=== PATIENT | male | born 1975 | race Caucasian/White ===

== ENCOUNTER 2016-10-15 08:38 | Emergency (ER) | payer OTHER ==
[2016-10-15] MEDS ORDERED: ONDANSETRON 4MG/2ML VIAL (J2405) As Ordered ONE (09:46)
[2016-10-15] MEDS ORDERED: MORPHINE 4 MG/ML 1ML SYRINGE As Ordered ONE (09:46)
--- NOTE | 2016-10-15 12:19 | REP ---
MR LUMBAR SPINE WITHOUT CONTRAST: HISTORY: Back pain. COMPARISON: 03/27/2016. Decreased signal intensity on T2-weighted images is present in the L1-2 and L3-4 through L5-S1 intervertebral discs. The discs are decreased in height. These findings are consistent with disc degeneration. There is no disc bulge or herniation at the L1-2 level. The L1 nerves exit the neural foramina without compression. A diffuse disc bulge is present at the L2-3 level. There is minimal compression of the thecal sac. The L2 nerves exit the neural foramina without compression. A diffuse disc bulge is present at the L3-4 level. There is minimal compression of the thecal sac. A small left intraforaminal disc protrusion is present. This abuts the left L3 nerve in the neural foramen. The right L3 nerve exits the neural foramen without compression. A diffuse disc bulge and small central disc protrusion are present at the L4-5 level. There is minimal compression of the thecal sac. There is hypertrophy of the posterior articulating facets. The L4 nerves exit the neural foramina without compression. A diffuse disc bulge and small disc extrusion central and eccentric to the left are present at the L5-S1 level. There is minimal compression of the thecal sac and left S1 nerve as it exits the thecal sac. There is hypertrophy of the posterior articulating facets. The L5 nerves exit the neural foramina without compression. The conus medullaris is normal in appearance terminating at the level of the L1-2 intervertebral disc. A hemangioma is present in the L3 vertebral body. Normal signal intensity is present in the remaining lumbar vertebral bodies. IMPRESSION: 1. Diffuse disc bulges at the L2-3 and L3-4 levels with minimal thecal sac compression. 2. Diffuse disc bulge and small central disc protrusion at the L4-5 level with minimal thecal sac compression. 3. Diffuse disc bulge and small disc extrusion at the L5-S1 level with minimal compression of the thecal sac and left S1 nerve as it exits the thecal sac. There is no significant change compared to the previous study. Signed by Seferino Jorge MD 10/15/2016 12:24 P
--- NOTE | 2016-10-15 12:21 | EDDOCDS ---
Physician Documentation [facility] Name: Ángel Bass Age: 41 yrs Sex: Male : 1975 Arrival Date: 10/15/2016 Time: 08:38 Bed I6 / 28 Private MD: Magno Arreaga W. Disposition: 10/15/16 12:11 Discharged to Home/Self Care. Impression: Low back pain - Chronic, Other intervertebral disc disorders, lumbosacral region - Minimal bulge L2-3, L3-4; Small HNP L4-5, L5-S1; no change from previous MRI. - Condition is Stable. - Discharge Instructions: Back Pain, Adult, [id number], Herniated Disk, Kjqf-bs-[id number]. - Prescriptions for Prednisone 20 mg Oral Tablet - take 3 tablet by ORAL route once daily for 5 days; 15 tablet. [place] 5- 325 mg Oral Tablet - take 1 tablet by ORAL route every 6 hours As needed MDD: 4 tabs; 10 tablet. Zanaflex 4 mg Oral Tablet - take 1 tablet by ORAL route every 8 hours As needed Will cause drowsiness, do not take while driving/operating heavy machinery.; 20 tablet. - Medication Reconciliation, Local Pharmacy Hours, Work Release Form - 5 day form. - Follow up: Magno Arreaga; When: 1 - 2 days; Reason: Recheck today's complaints, Continuance of care. Follow up: [facility]; When: 1 - 2 days; Reason: Further diagnostic work-up, Recheck today's complaints, Continuance of care. Follow up: Emergency Department; Reason: Worsening of conditions. - Problem is new. - Symptoms have improved. Historical: - Allergies: No known drug Allergies; - Home Meds: 1. Celebrex 200 mg Oral cap 1 cap once daily (Last dose: 10/15/2016 06:30) 2. Tylenol 500mg Oral 2 tabs every 6 hours PRN (Last dose: 10/15/2016 06:30) - PMHx: chronic back pain; - PSHx: bone graft; - Social history: Smoking status: Patient states was never smoker of tobacco. No barriers to communication noted, The patient speaks fluent Lithuanian, Speaks appropriately for age. - Family history: Not pertinent. - : The pt / caregiver states he / she is not on anticoagulants. Home medication list is obtained from the patient. - Exposure Risk Screening:: None identified. Vital Signs: 10/15 09:09 BP 134 / 90; Pulse 84; Resp 18; Temp 97.7(O); Pulse Ox 98% ; Weight 108.86 kg / 240 lbs jb5 (R); Height 5 ft. 8 in. (172.72 cm); Pain 6/10; 12:19 BP 128 / 91; Pulse 76; Resp 16; Temp 96.9(O); Pulse Ox 98% ; Pain 4/10; kr3 09:09 Body Mass Index 36.49 (108.86 kg, 172.72 cm) jb5 MDM: 09:33 IV Saline Lock ordered. ef1 09:33 morphine 4 mg IVP once ordered. ef1 09:33 Ondansetron 4 mg IVP once ordered. ef1 09:35 MRI Screening Tool - Place on chart, inform RN ordered. ef1 09:36 -MRI-Spine, Lumbar without contrast Ordered. EDMS 09:51 MRI Screening Tool - Place on chart, inform RN complete. [facility] 11:34 [facility] Payment Agreement was scanned into [employer] and attached to record. 5 11:34 Financial registration complete. jp5 Administered Medications: 09:54 Drug: Ondansetron 4 mg [ondansetron HCl 2 mg/mL intravenous solution (2 mL)] Route: kr3 IVP; Site: right hand; 09:57 Drug: morphine 4 mg [morphine 4 mg/mL intravenous cartridge (1 mL)] Route: IVP; Site: kr3 right hand; 10:51 Follow up: Response: Pain is decreased 4 Signatures: Dispatcher [employer] EDMS Sheela DesouzaRN RN kr3 Wendi SosaRN RN Nazanin Salazar, PA-C PA-C ef1 Dashawn Chawla jml1 Elle Downs RN RN claudette4 Brenda Mathew jp5 The chart was reviewed and I authenticate all verbal orders and agree with the evaluation and treatment provided.Attachments: 11:34 [facility] Payment Agreement jp5 MTDD
--- NOTE | 2016-10-15 12:21 | EDDOCDS ---
Nurse's Notes [facility] Name: Ángel Bass Age: 41 yrs Sex: Male : 1975 Arrival Date: 10/15/2016 Time: 08:38 Bed I6 Private MD: Magno Arreaga W. Diagnosis: Low back pain-Chronic;Other intervertebral disc disorders, lumbosacral region-Minimal bulge L2-3, L3-4; Small HNP L4-5, L5-S1; no change from previous MRI Presentation: 10/15 09:03 Presenting complaint: Patient states: Hx of 4 herniated discs. Had injections 2 weeks jo3 ago. Pain is not getting any better. Pt of orthopedic group. Acute neurological deficits are not present. Mechanism of Injury: No Mechanism of Injury. Adult Sepsis Screening: The patient does not have new or worsening altered mentation. Patient's respiratory rate is less than 22. Systolic blood pressure is greater than 100. Patient has a qSOFA score of 0- Negative Sepsis Screen. Suicide/Homicide risk assessment- the patient denies having any suicidal and/or homicidal ideations and does not present with any other emotional, behavioral or mental health complaints. Status: Patient is not a medical staff services manager or dependent. Transition of care: patient was not received from another setting of care. 09:03 Acuity: FRANCISCA Level 3 jo3 09:03 Method Of Arrival: Walkin/Carried/Asstd jo3 Triage Assessment: 09:06 General: Appears uncomfortable. Pain: Pain currently is 6 out of 10 on a pain scale. At jo3 worst was 10 out of 10 on a pain scale. Pt Declines HIV testing. Neurological: Level of Consciousness is awake, alert, Oriented to person, place, time. Respiratory: Airway is patent Respiratory effort is even, unlabored. Derm: Skin is pink, warm & dry. Historical: - Allergies: No known drug Allergies; - Home Meds: 1. Celebrex 200 mg Oral cap 1 cap once daily (Last dose: 10/15/2016 06:30) 2. Tylenol 500mg Oral 2 tabs every 6 hours PRN (Last dose: 10/15/2016 06:30) - PMHx: chronic back pain; - PSHx: bone graft; - Social history: Smoking status: Patient states was never smoker of tobacco. No barriers to communication noted, The patient speaks fluent Sri Lankan, Speaks appropriately for age. - Family history: Not pertinent. - : The pt / caregiver states he / she is not on anticoagulants. Home medication list is obtained from the patient. - Exposure Risk Screening:: None identified. Screenin:51 Screening information is obtained from the patient. Fall risk: No risks identified. mk4 Assistance ADL's: requires no assistance with activities of daily living. Abuse/DV Screen: The patient / caregiver reports he/she is: not in a situation that causes fear, pain or injury. Nutritional screening: No deficits noted. Advance Directives: Currently, there is no health care proxy. There is no active DNR order. There is no living will. There is no Power of Terminal Makeup Operator. Advance directive information has not previously been placed in an [facility] medical record. home support is adequate. Assessment: 09:50 General: Appears uncomfortable, Behavior is cooperative. Pain: Location: back pain from mk4 4 herniated discs Quality of pain is described as sharp, Is continuous. Neurological: Level of Consciousness is awake, alert. Respiratory: Airway is patent Respiratory effort is even, unlabored, Respiratory pattern is regular. Musculoskeletal: No deficits noted. 10:49 General: Appears in no apparent distress, returned from MRI , states pain manageable. mk4 Neurological: Level of Consciousness is awake, alert. Respiratory: Airway is patent Respiratory effort is even, unlabored, Respiratory pattern is regular. 12:20 Reassessment: Patient appears in no apparent distress at this time. Pain: Location: kr3 back Pain currently is 4 out of 10 on a pain scale. Neurological: No deficits noted. Respiratory: Respiratory effort is even, unlabored. Vital Signs: 09:09 BP 134 / 90; Pulse 84; Resp 18; Temp 97.7(O); Pulse Ox 98% ; Weight 108.86 kg (R); jb5 Height 5 ft. 8 in. (172.72 cm); Pain 6/10; 12:19 BP 128 / 91; Pulse 76; Resp 16; Temp 96.9(O); Pulse Ox 98% ; Pain 4/10; kr3 09:09 Body Mass Index 36.49 (108.86 kg, 172.72 cm) jb5 Vitals: 09:06 Log In Time: October 15, 2016 at 08:35. jo3 ED Course: 08:40 Patient visited by Ángel Bond. mm15 08:40 Magno Arreaga is Private Physician. mm15 08:40 Patient moved to Waiting mm15 09:05 Triage Initiated jo3 09:08 Patient visited by Wendi Sosa,VINCENT. jo3 09:08 Patient moved to Triage 2 jo3 09:10 Patient visited by Nina Vallecillo PCA. jb5 09:20 Naz[facility]in Sinclair [facility]. ef1 09:20 Gio Lim MD is Attending Physician. ef1 09:20 Patient visited by Nazanin Sinclair PA-C. ef1 09:34 Patient moved to I6 / 28 jb5 09:51 The patient / caregiver is instructed regarding the plan of care and ED course. mk4 09:51 No procedures done that require assistance. mk4 09:51 Missed attempts: 20 gauge X 2 in right hand, in right forearm. mk4 09:52 Patient visited by Elle Downs RN. mk4 09:57 Inserted saline lock: 22 gauge in right hand The patient tolerated the procedure well. kr3 10:04 Patient moved to MRI mk4 10:34 Patient visited by Nazanin Sinclair PA-C. ef1 10:49 Patient moved to I6 / 28 mk4 10:56 Patient visited by Nazanin Sinclair PA-C. ef1 10:56 Assisted to bathroom. kr3 11:28 Patient visited by Elle Downs RN. mk4 11:34 [facility] Payment Agreement was scanned into [employer] and attached to record. jp5 12:00 Patient visited by Nazanin Sinclair PA-C. ef1 12:11 Magno Arreaga is Referral Physician. ef1 12:11 [facility] ef1 12:19 Discontinued lock intact, bleeding controlled, pressure dressing applied, No kr3 redness/swelling at site. Administered Medications: 09:54 Drug: Ondansetron 4 mg [ondansetron HCl 2 mg/mL intravenous solution (2 mL)] Route: kr3 IVP; Site: right hand; 09:57 Drug: morphine 4 mg [morphine 4 mg/mL intravenous cartridge (1 mL)] Route: IVP; Site: kr3 right hand; 10:51 Follow up: Response: Pain is decreased mk4 Order Results: There are currently no results for this order. Outcome: 10:56 MRI Study completed. kr3 12:11 Discharge ordered by Provider. ef1 12:19 Discharge Assessment: patient administered narcotics - yes. Pt provided with safe kr3 discharge. The following High Risk Discharge criteria are identified: None. Discharged to home ambulatory, with family. Condition: stable. Discharge instructions given to patient, Instructed on discharge instructions, follow up and referral plans. medication usage, no driving heavy equipment, no drinking with medication, Demonstrated understanding of instructions, medications, Pt was receptive of discharge instructions/ teaching. Prescriptions given X 3. Property sent home with patient. 12:20 Patient left the ED. kr3 Signatures: Sheela Desouza,RN RN kr3 Nina Vallecillo, FINANCIAL AID FINANCIAL AID jb5 Wendi Sosa,RN RN jo3 Nazanin Sinclair, PA-C PA-C ef1 Ángel Bond mm15 Elle Downs RN RN claudette4 Brenda Mathew jp5 Corrections: (The following items were deleted from the chart) 09:52 09:51 No IV's were initiated during this patient's visit mk4 mk4 MTDD
--- NOTE | 2016-10-17 13:22 | EDDOCDS ---
Physician Documentation [facility] Name: Ángel Bass Age: 41 yrs Sex: Male : 1975 Arrival Date: 10/15/2016 Time: 08:38 Bed I6 / 28 Private MD: Magno Arreaga W. Disposition: 10/15/16 12:11 Discharged to Home/Self Care. Impression: Low back pain - Chronic, Other intervertebral disc disorders, lumbosacral region - Minimal bulge L2-3, L3-4; Small HNP L4-5, L5-S1; no change from previous MRI. - Condition is Stable. - Discharge Instructions: Back Pain, Adult, Ydov-[id number], Herniated Disk, Mics-uo-Ayvg. - Prescriptions for Prednisone 20 mg Oral Tablet - take 3 tablet by ORAL route once daily for 5 days; 15 tablet. [place] 5- 325 mg Oral Tablet - take 1 tablet by ORAL route every 6 hours As needed MDD: 4 tabs; 10 tablet. Zanaflex 4 mg Oral Tablet - take 1 tablet by ORAL route every 8 hours As needed Will cause drowsiness, do not take while driving/operating heavy machinery.; 20 tablet. - Medication Reconciliation, Local Pharmacy Hours, Work Release Form - 5 day form. - Follow up: Magno Arreaga; When: 1 - 2 days; Reason: Recheck today's complaints, Continuance of care. Follow up: [facility]; When: 1 - 2 days; Reason: Further diagnostic work-up, Recheck today's complaints, Continuance of care. Follow up: Emergency Department; Reason: Worsening of conditions. - Problem is new. - Symptoms have improved. Historical: - Allergies: No known drug Allergies; - Home Meds: 1. Celebrex 200 mg Oral cap 1 cap once daily (Last dose: 10/15/2016 06:30) 2. Tylenol 500mg Oral 2 tabs every 6 hours PRN (Last dose: 10/15/2016 06:30) - PMHx: chronic back pain; - PSHx: bone graft; - Social history: Smoking status: Patient states was never smoker of tobacco. No barriers to communication noted, The patient speaks fluent Tajik, Speaks appropriately for age. - Family history: Not pertinent. - : The pt / caregiver states he / she is not on anticoagulants. Home medication list is obtained from the patient. - Exposure Risk Screening:: None identified. Vital Signs: 10/15 09:09 BP 134 / 90; Pulse 84; Resp 18; Temp 97.7(O); Pulse Ox 98% ; Weight 108.86 kg / 240 lbs jb5 (R); Height 5 ft. 8 in. (172.72 cm); Pain 6/10; 12:19 BP 128 / 91; Pulse 76; Resp 16; Temp 96.9(O); Pulse Ox 98% ; Pain 4/10; kr3 09:09 Body Mass Index 36.49 (108.86 kg, 172.72 cm) jb5 MDM: 09:33 IV Saline Lock ordered. ef1 09:33 morphine 4 mg IVP once ordered. ef1 09:33 Ondansetron 4 mg IVP once ordered. ef1 09:35 MRI Screening Tool - Place on chart, inform RN ordered. ef1 09:36 -MRI-Spine, Lumbar without contrast Ordered. EDMS 09:51 MRI Screening Tool - Place on chart, inform RN complete. jml1 11:34 [facility] Payment Agreement was scanned into [employer] and attached to record. jp5 11:34 Financial registration complete. jp5 14:58 T-Sheet-- Draft Copy was scanned into [employer] and attached to record. gb 14:58 Radiology Report was scanned into [employer] and attached to record. gb Administered Medications: 09:54 Drug: Ondansetron 4 mg [ondansetron HCl 2 mg/mL intravenous solution (2 mL)] Route: kr3 IVP; Site: right hand; 09:57 Drug: morphine 4 mg [morphine 4 mg/mL intravenous cartridge (1 mL)] Route: IVP; Site: kr3 right hand; 10:51 Follow up: Response: Pain is decreased mk4 Signatures: Dispatcher [employer] EDMS Treasure Ricketts, Sheela Saxena,RN RN kr3 Wendi SosaRN RN bobo3 Nazanin Sinclair, PA-C PA-C ef1 Dashawn Chawla jml1 Elle Downs RN RN mk4 Brenda Mathew jp5 The chart was reviewed and I authenticate all verbal orders and agree with the evaluation and treatment provided.Attachments: 11:34 [facility] Payment Agreement jp5 14:58 T-Sheet-- Draft Copy gb Chart Complete MTDD
--- NOTE | 2016-10-17 13:22 | EDDOCDS ---
Nurse's Notes [facility] Name: Ángel Bass Age: 41 yrs Sex: Male : 1975 Arrival Date: 10/15/2016 Time: 08:38 Bed I6 Private MD: Magno Arreaga W. Diagnosis: Low back pain-Chronic;Other intervertebral disc disorders, lumbosacral region-Minimal bulge L2-3, L3-4; Small HNP L4-5, L5-S1; no change from previous MRI Presentation: 10/15 09:03 Presenting complaint: Patient states: Hx of 4 herniated discs. Had injections 2 weeks jo3 ago. Pain is not getting any better. Pt of orthopedic group. Acute neurological deficits are not present. Mechanism of Injury: No Mechanism of Injury. Adult Sepsis Screening: The patient does not have new or worsening altered mentation. Patient's respiratory rate is less than 22. Systolic blood pressure is greater than 100. Patient has a qSOFA score of 0- Negative Sepsis Screen. Suicide/Homicide risk assessment- the patient denies having any suicidal and/or homicidal ideations and does not present with any other emotional, behavioral or mental health complaints. Status: Patient is not a food service worker or dependent. Transition of care: patient was not received from another setting of care. 09:03 Acuity: FRANCISCA Level 3 jo3 09:03 Method Of Arrival: Walkin/Carried/Asstd jo3 Triage Assessment: 09:06 General: Appears uncomfortable. Pain: Pain currently is 6 out of 10 on a pain scale. At jo3 worst was 10 out of 10 on a pain scale. Pt Declines HIV testing. Neurological: Level of Consciousness is awake, alert, Oriented to person, place, time. Respiratory: Airway is patent Respiratory effort is even, unlabored. Derm: Skin is pink, warm & dry. Historical: - Allergies: No known drug Allergies; - Home Meds: 1. Celebrex 200 mg Oral cap 1 cap once daily (Last dose: 10/15/2016 06:30) 2. Tylenol 500mg Oral 2 tabs every 6 hours PRN (Last dose: 10/15/2016 06:30) - PMHx: chronic back pain; - PSHx: bone graft; - Social history: Smoking status: Patient states was never smoker of tobacco. No barriers to communication noted, The patient speaks fluent Iranian, Speaks appropriately for age. - Family history: Not pertinent. - : The pt / caregiver states he / she is not on anticoagulants. Home medication list is obtained from the patient. - Exposure Risk Screening:: None identified. Screenin:51 Screening information is obtained from the patient. Fall risk: No risks identified. mk4 Assistance ADL's: requires no assistance with activities of daily living. Abuse/DV Screen: The patient / caregiver reports he/she is: not in a situation that causes fear, pain or injury. Nutritional screening: No deficits noted. Advance Directives: Currently, there is no health care proxy. There is no active DNR order. There is no living will. There is no Power of Help Desk Consultant. Advance directive information has not previously been placed in an [facility] medical record. home support is adequate. Assessment: 09:50 General: Appears uncomfortable, Behavior is cooperative. Pain: Location: back pain from mk4 4 herniated discs Quality of pain is described as sharp, Is continuous. Neurological: Level of Consciousness is awake, alert. Respiratory: Airway is patent Respiratory effort is even, unlabored, Respiratory pattern is regular. Musculoskeletal: No deficits noted. 10:49 General: Appears in no apparent distress, returned from MRI , states pain manageable. mk4 Neurological: Level of Consciousness is awake, alert. Respiratory: Airway is patent Respiratory effort is even, unlabored, Respiratory pattern is regular. 12:20 Reassessment: Patient appears in no apparent distress at this time. Pain: Location: kr3 back Pain currently is 4 out of 10 on a pain scale. Neurological: No deficits noted. Respiratory: Respiratory effort is even, unlabored. Vital Signs: 09:09 BP 134 / 90; Pulse 84; Resp 18; Temp 97.7(O); Pulse Ox 98% ; Weight 108.86 kg (R); jb5 Height 5 ft. 8 in. (172.72 cm); Pain 6/10; 12:19 BP 128 / 91; Pulse 76; Resp 16; Temp 96.9(O); Pulse Ox 98% ; Pain 4/10; kr3 09:09 Body Mass Index 36.49 (108.86 kg, 172.72 cm) jb5 Vitals: 09:06 Log In Time: October 15, 2016 at 08:35. jo3 ED Course: 08:40 Patient visited by Ángel Bond. mm15 08:40 Magno Arreaga is Private Physician. mm15 08:40 Patient moved to Waiting mm15 09:05 Triage Initiated jo3 09:08 Patient visited by Wendi Sosa,VINCENT. jo3 09:08 Patient moved to Triage 2 jo3 09:10 Patient visited by Nina Vallecillo PCA. jb5 09:20 [facility] Sinclair [facility] ef1 09:20 Gio Lim MD is Attending Physician. ef1 09:20 Patient visited by Nazanin Sinclair PA-C. ef1 09:34 Patient moved to I6 / jb5 09:51 The patient / caregiver is instructed regarding the plan of care and ED course. mk4 09:51 No procedures done that require assistance. mk4 09:51 Missed attempts: 20 gauge X 2 in right hand, in right forearm. mk4 09:52 Patient visited by Elle Downs RN. mk4 09:57 Inserted saline lock: 22 gauge in right hand The patient tolerated the procedure well. kr3 10:04 Patient moved to MRI mk4 10:34 Patient visited by Nazanin Sinclair PA-C. ef1 10:49 Patient moved to I6 / mk4 10:56 Patient visited by Nazanin Sinclair PA-C. ef1 10:56 Assisted to bathroom. kr3 11:28 Patient visited by Elle Downs RN. mk4 11:34 [facility] Payment Agreement was scanned into [employer] and attached to record. jp5 12:00 Patient visited by Nazanin Sinclair PA-C. ef1 12:11 Magno Arreaga is Referral Physician. ef1 12:11 [facility]. ef1 12:19 Discontinued lock intact, bleeding controlled, pressure dressing applied, No kr3 redness/swelling at site. 12:39 -MRI-Spine, Lumbar without contrast Returned. EDMS 14:06 Patient name changed from Ángel\S\\S\Denesha\S\ to Ángel\S\Dusty\S\Denesha. EDMS 14:58 T-Sheet-- Draft Copy was scanned into [employer] and attached to record. gb 14:58 Radiology Report was scanned into [employer] and attached to record. gb Administered Medications: 09:54 Drug: Ondansetron 4 mg [ondansetron HCl 2 mg/mL intravenous solution (2 mL)] Route: kr3 IVP; Site: right hand; 09:57 Drug: morphine 4 mg [morphine 4 mg/mL intravenous cartridge (1 mL)] Route: IVP; Site: kr3 right hand; 10:51 Follow up: Response: Pain is decreased mk4 Order Results: Radiology Order: -MRI-Spine, Lumbar without contrast Test: -MRI-Spine, Lumbar without contrast REASON FOR EXAMINATION: back pain with incontinence; MR LUMBAR SPINE WITHOUT CONTRAST:; ; HISTORY: Back pain.; ; COMPARISON: 03/27/2016.; ; Decreased signal intensity on T2-weighted images is present in the L1-2 and L3-4; through L5-S1 intervertebral discs. The discs are decreased in height. These; findings are consistent with disc degeneration.; ; There is no disc bulge or herniation at the L1-2 level. The L1 nerves exit the; neural foramina without compression.; ; A diffuse disc bulge is present at the L2-3 level. There is minimal compression; of the thecal sac. The L2 nerves exit the neural foramina without compression.; ; ; A diffuse disc bulge is present at the L3-4 level. There is minimal compression; of the thecal sac. A small left intraforaminal disc protrusion is present. This; abuts the left L3 nerve in the neural foramen. The right L3 nerve exits the; neural foramen without compression.; ; A diffuse disc bulge and small central disc protrusion are present at the L4-5; level. There is minimal compression of the thecal sac. There is hypertrophy of; the posterior articulating facets. The L4 nerves exit the neural foramina; without compression.; ; A diffuse disc bulge and small disc extrusion central and eccentric to the left; are present at the L5-S1 level. There is minimal compression of the thecal sac; and left S1 nerve as it exits the thecal sac. There is hypertrophy of the; posterior articulating facets. The L5 nerves exit the neural foramina without; compression.; ; The conus medullaris is normal in appearance terminating at the level of the L1-2; intervertebral disc. A hemangioma is present in the L3 vertebral body. Normal; signal intensity is present in the remaining lumbar vertebral bodies.; ; IMPRESSION:; ; 1. Diffuse disc bulges at the L2-3 and L3-4 levels with minimal thecal sac; compression.; ; 2. Diffuse disc bulge and small central disc protrusion at the L4-5 level with; minimal thecal sac compression.; ; 3. Diffuse disc bulge and small disc extrusion at the L5-S1 level with minimal; compression of the thecal sac and left S1 nerve as it exits the thecal sac.; There is no significant change compared to the previous study.; ; ; Signed by; Seferino Jorge MD 10/15/2016 12:24 P; Outcome: 10:56 MRI Study completed. kr3 12:11 Discharge ordered by Provider. ef1 12:19 Discharge Assessment: patient administered narcotics - yes. Pt provided with safe kr3 discharge. The following High Risk Discharge criteria are identified: None. Discharged to home ambulatory, with family. Condition: stable. Discharge instructions given to patient, Instructed on discharge instructions, follow up and referral plans. medication usage, no driving heavy equipment, no drinking with medication, Demonstrated understanding of instructions, medications, Pt was receptive of discharge instructions/ teaching. Prescriptions given X 3. Property sent home with patient. 12:20 Patient left the ED. kr3 Signatures: Dispatcher [employer] EDMS Treasure Ricketts, Reg Reg Sheela Marcos,RN RN [email or web address] Nina Vallecillo, ELECTRONICS TECHNICIAN APPRENTICE ELECTRONICS TECHNICIAN APPRENTICE jb5 Wendi Sosa RN RN jo3 Nazanin Sinclair, PA-C PA-C ef1 Ángel Bond mm15 Elle Downs RN RN [email or web address] Brenda Mathew jp5 Corrections: (The following items were deleted from the chart) 09:52 09:51 No IV's were initiated during this patient's visit alyson shields Chart Complete MTDD
--- NOTE | 2016-10-17 13:22 | EDDOCDS ---
Physician Documentation [facility] Name: Ángel Bass Age: 41 yrs Sex: Male : 1975 Arrival Date: 10/15/2016 Time: 08:38 Bed I6 / 28 Private MD: Magno Arreaga W. Disposition: 10/15/16 12:11 Discharged to Home/Self Care. Impression: Low back pain - Chronic, Other intervertebral disc disorders, lumbosacral region - Minimal bulge L2-3, L3-4; Small HNP L4-5, L5-S1; no change from previous MRI. - Condition is Stable. - Discharge Instructions: Back Pain, Adult, [id number], Herniated Disk, [id number]. - Prescriptions for Prednisone 20 mg Oral Tablet - take 3 tablet by ORAL route once daily for 5 days; 15 tablet. [place] 5- 325 mg Oral Tablet - take 1 tablet by ORAL route every 6 hours As needed MDD: 4 tabs; 10 tablet. Zanaflex 4 mg Oral Tablet - take 1 tablet by ORAL route every 8 hours As needed Will cause drowsiness, do not take while driving/operating heavy machinery.; 20 tablet. - Medication Reconciliation, Local Pharmacy Hours, Work Release Form - 5 day form. - Follow up: Magno Arreaga; When: 1 - 2 days; Reason: Recheck today's complaints, Continuance of care. Follow up: [facility]; When: 1 - 2 days; Reason: Further diagnostic work-up, Recheck today's complaints, Continuance of care. Follow up: Emergency Department; Reason: Worsening of conditions. - Problem is new. - Symptoms have improved. Historical: - Allergies: No known drug Allergies; - Home Meds: 1. Celebrex 200 mg Oral cap 1 cap once daily (Last dose: 10/15/2016 06:30) 2. Tylenol 500mg Oral 2 tabs every 6 hours PRN (Last dose: 10/15/2016 06:30) - PMHx: chronic back pain; - PSHx: bone graft; - Social history: Smoking status: Patient states was never smoker of tobacco. No barriers to communication noted, The patient speaks fluent Chinese, Speaks appropriately for age. - Family history: Not pertinent. - : The pt / caregiver states he / she is not on anticoagulants. Home medication list is obtained from the patient. - Exposure Risk Screening:: None identified. Vital Signs: 10/15 09:09 BP 134 / 90; Pulse 84; Resp 18; Temp 97.7(O); Pulse Ox 98% ; Weight 108.86 kg / 240 lbs jb5 (R); Height 5 ft. 8 in. (172.72 cm); Pain 6/10; 12:19 BP 128 / 91; Pulse 76; Resp 16; Temp 96.9(O); Pulse Ox 98% ; Pain 4/10; kr3 09:09 Body Mass Index 36.49 (108.86 kg, 172.72 cm) jb5 MDM: 09:33 IV Saline Lock ordered. ef1 09:33 morphine 4 mg IVP once ordered. ef1 09:33 Ondansetron 4 mg IVP once ordered. ef1 09:35 MRI Screening Tool - Place on chart, inform RN ordered. ef1 09:36 -MRI-Spine, Lumbar without contrast Ordered. EDMS 09:51 MRI Screening Tool - Place on chart, inform RN complete. jml1 11:34 [facility] Payment Agreement was scanned into [employer] and attached to record. jp5 11:34 Financial registration complete. jp5 14:58 T-Sheet-- Draft Copy was scanned into Highlight and attached to record. gb 14:58 Radiology Report was scanned into [employer] and attached to record. gb Administered Medications: 09:54 Drug: Ondansetron 4 mg [ondansetron HCl 2 mg/mL intravenous solution (2 mL)] Route: kr3 IVP; Site: right hand; 09:57 Drug: morphine 4 mg [morphine 4 mg/mL intravenous cartridge (1 mL)] Route: IVP; Site: kr3 right hand; 10:51 Follow up: Response: Pain is decreased mk4 Signatures: Dispatcher [employer] EDMS Treasure Ricketts, Sheela Saxena,RN RN kr3 Wendi SosaRN RN bobo3 Nazanin Sinclair, PA-C PA-C ef1 Dashawn Chawla jml1 Elle Downs RN RN mk4 Brenda Mathew jp5 The chart was reviewed and I authenticate all verbal orders and agree with the evaluation and treatment provided.Attachments: 11:34 [facility] Payment Agreement jp5 14:58 T-Sheet-- Draft Copy gb Chart Complete MTDD
== END 2016-10-15 12:20 | disposition home or self-care (01) ==
LOC: M ED 08:38
DX: M51.9 Unspecified thoracic, thoracolumbar and lumbosacral intervertebral disc disorder (principal); Z79.899 Other long term (current) drug therapy
CPT/HCPCS: 72148; 96374; 96375; 99284; J2405

== ENCOUNTER → 2016-12-24 | Outpatient (REF) | payer BC ==
[2016-12-24 13:56] LABS: INR 0.94
== END ==
LOC: M LABDRAW1 13:14
PROVIDERS: ATTEND Physical Medicine & Rehabilitation
DX: Z01.812 Encounter for preprocedural laboratory examination (principal); M51.37 Other intervertebral disc degeneration, lumbosacral region

== ENCOUNTER 2021-07-31 12:08 | Emergency (ER) | payer BC ==
[~2021-07-31] VITALS: Ht 172.7 cm; Wt 127.4 kg
[2021-07-31 12:08] VITALS: BP 142/92
[2021-07-31] MEDS ORDERED: CELE1CAP88 PO (12:13)
[2021-07-31] MEDS ORDERED: GABA-283 PO (12:13)
[2021-07-31] MEDS ORDERED: CYCL5TAB PO (12:13)
--- OUTSIDE RECORDS SUMMARY | 2021-07-31 12:15 | CCD ---
Author Author [facility] Organization [facility] Address Unknown Phone Unavailable Care Team Providers Care Flight Service Specialist Name Role Phone OBDULIA TRAN MD Unavailable Unavailable Hadian, Mehrdad Unavailable Unavailable Hadian, Mehrdad Unavailable Unavailable Hadian, Mehrdad Unavailable Unavailable Hadian, Mehrdad Unavailable Unavailable Hadian, Mehrdad Unavailable Unavailable Hadian, Mehrdad Unavailable Unavailable Hadian, Mehrdad Unavailable Unavailable Hadian, Mehrdad Unavailable Unavailable Hadian, Mehrdad Unavailable Unavailable Hadian, Mehrdad Unavailable Unavailable Hadian, Mehrdad Unavailable Unavailable Hadian, Mehrdad Unavailable Unavailable Hadian, Mehrdad Unavailable Unavailable Hadian, Mehrdad Unavailable Unavailable Hadian, Mehrdad Unavailable Unavailable Hadian, Mehrdad Unavailable Unavailable Hadian, Mehrdad Unavailable Unavailable Hadian, Mehrdad Unavailable Unavailable Hadian, Mehrdad Unavailable Unavailable Hadian, Mehrdad Unavailable Unavailable Hadian, Mehrdad Unavailable Unavailable Hadian, Mehrdad Unavailable Unavailable Hadian, Mehrdad Unavailable Unavailable Hadian, Mehrdad Unavailable Unavailable Hadian, Mehrdad Unavailable Unavailable Hadian, Mehrdad Unavailable Unavailable Hadian, Mehrdad Unavailable Unavailable Hadian, Mehrdad Unavailable Unavailable Hadian, Mehrdad Unavailable Unavailable Hadian, Mehrdad Unavailable Unavailable Hadian, Mehrdad Unavailable Unavailable Hadian, Mehrdad Unavailable Unavailable Hadian, Mehrdad Unavailable Unavailable Hadian, Mehrdad Unavailable Unavailable Hadian, Mehrdad Unavailable Unavailable Hadian, Mehrdad Unavailable Unavailable Hadian, Mehrdad Unavailable Unavailable Hadian, Mehrdda Unavailable Unavailable Hadian, Mehrdad Unavailable Unavailable Hadian, Mehrdad Unavailable Unavailable Hadian, Mehrdad Unavailable Unavailable Hadian, Mehrdad Unavailable Unavailable Gardner, E Nuria PA Unavailable [phone] Gardner, E Nuria PA Unavailable [phone] Gardner, E Nuria PA Unavailable [phone] Gardner, E Nuria PA Unavailable [phone] Gardner, E Nuria PA Unavailable [phone] Gardner, E Nuria PA Unavailable [phone] NARESH Tran MD Unavailable Unavailable NARESH Tran MD Unavailable Unavailable NARESH Tran MD Unavailable Unavailable NARESH Tran MD Unavailable Unavailable NARESH Tran MD Unavailable Unavailable NARESH Tran MD Unavailable Unavailable NARESH Tran MD Unavailable Unavailable NARESH Tran MD Unavailable Unavailable NARESH Tran MD Unavailable Unavailable NARESH Tran MD Unavailable Unavailable NARESH Tran MD Unavailable Unavailable NARESH Tran MD Unavailable Unavailable NARESH Tran MD Unavailable Unavailable NARESH Tran MD Unavailable Unavailable NARESH Tran MD Unavailable Unavailable NARESH Tran MD Unavailable Unavailable NARESH Tran MD Unavailable Unavailable NARESH Tran MD Unavailable Unavailable NARESH Tran MD Unavailable Unavailable NARESH Tran MD Unavailable Unavailable NARESH Tran MD Unavailable Unavailable Cougler, S Manohar OWNER/PHOTOGRAPHER Unavailable Unavailable Cougler, S Manohar OWNER/PHOTOGRAPHER Unavailable Unavailable Cougler, S Manohar OWNER/PHOTOGRAPHER Unavailable Unavailable Cougler, S Manohar OWNER/PHOTOGRAPHER Unavailable Unavailable Cougler, S Manohar OWNER/PHOTOGRAPHER Unavailable Unavailable Cougler, S Manohar OWNER/PHOTOGRAPHER Unavailable Unavailable Cougler, S Manohar OWNER/PHOTOGRAPHER Unavailable Unavailable Cougler, S Manohar OWNER/PHOTOGRAPHER Unavailable Unavailable Cougler, S Manohar OWNER/PHOTOGRAPHER Unavailable Unavailable Cougler, S Manohar OWNER/PHOTOGRAPHER Unavailable Unavailable Cougler, S Manohar OWNER/PHOTOGRAPHER Unavailable Unavailable Cougler, S Manohar OWNER/PHOTOGRAPHER Unavailable Unavailable Cougler, S Manohar OWNER/PHOTOGRAPHER Unavailable Unavailable Cougler, S Manohar OWNER/PHOTOGRAPHER Unavailable Unavailable Cougler, S Manohar OWNER/PHOTOGRAPHER Unavailable Unavailable Cougler, S Manohar OWNER/PHOTOGRAPHER Unavailable Unavailable Cougler, S Manohar OWNER/PHOTOGRAPHER Unavailable Unavailable Cougler, S Manohar OWNER/PHOTOGRAPHER Unavailable Unavailable Cougler, S Manohar OWNER/PHOTOGRAPHER Unavailable Unavailable Cougler, S Manohar OWNER/PHOTOGRAPHER Unavailable Unavailable Cougler, S Manohar OWNER/PHOTOGRAPHER Unavailable Unavailable Cougler, S Manohar OWNER/PHOTOGRAPHER Unavailable Unavailable Cougler, S Manohar OWNER/PHOTOGRAPHER Unavailable Unavailable Cougler, S Manohar OWNER/PHOTOGRAPHER Unavailable Unavailable Cougler, S Manohar OWNER/PHOTOGRAPHER Unavailable Unavailable Cougler, S Manohar OWNER/PHOTOGRAPHER Unavailable Unavailable Cougler, S Manohar OWNER/PHOTOGRAPHER Unavailable Unavailable Cougler, S Manohar OWNER/PHOTOGRAPHER Unavailable Unavailable Cougler, S Manohar OWNER/PHOTOGRAPHER Unavailable Unavailable Cougler, S Manohar OWNER/PHOTOGRAPHER Unavailable Unavailable Cougler, S Manohar OWNER/PHOTOGRAPHER Unavailable Unavailable Cougler, S Manohar OWNER/PHOTOGRAPHER Unavailable Unavailable Cougler, S Manohar OWNER/PHOTOGRAPHER Unavailable Unavailable Cougler, S Manohar OWNER/PHOTOGRAPHER Unavailable Unavailable Cougler, S Manohar OWNER/PHOTOGRAPHER Unavailable Unavailable Cougler, S Manohar OWNER/PHOTOGRAPHER Unavailable Unavailable Cougler, S Manohar OWNER/PHOTOGRAPHER Unavailable Unavailable Cougler, S Manohar OWNER/PHOTOGRAPHER Unavailable Unavailable Cougler, S Manohar OWNER/PHOTOGRAPHER Unavailable Unavailable Cougler, S Manohar OWNER/PHOTOGRAPHER Unavailable Unavailable Cougler, S Manohar OWNER/PHOTOGRAPHER Unavailable Unavailable Cougler, S Manohar OWNER/PHOTOGRAPHER Unavailable Unavailable Cougler, S Manohar OWNER/PHOTOGRAPHER Unavailable Unavailable Cougler, S Manohar OWNER/PHOTOGRAPHER Unavailable Unavailable Cougler, S Manohar OWNER/PHOTOGRAPHER Unavailable Unavailable UNKNOWN Unavailable Unavailable BROUGHAL, C SIRI PA Unavailable Unavailable BROUGHAL, C SIRI PA Unavailable Unavailable BROUGHAL, C SIRI PA Unavailable Unavailable BROUGHAL, C SIRI PA Unavailable Unavailable BROUGHAL, C SIRI PA Unavailable Unavailable BROUGHAL, C SIRI PA Unavailable Unavailable Re-disclosure Warning The records that you are about to access may contain information from federally-assisted alcohol or drug abuse programs. If such information is present, then the following federally mandated warning applies: This information has been disclosed to you from records protected by federal confidentiality rules (42 CFR part 2). The federal rules prohibit you from making any further disclosure of this information unless further disclosure is expressly permitted by the written consent of the person to whom it pertains or as otherwise permitted by 42 CFR part 2. A general authorization for the release of medical or other information is NOT sufficient for this purpose. The Federal rules restrict any use of the information to criminally investigate or prosecute any alcohol or drug abuse patient.The records that you are about to access may contain highly sensitive health information, the redisclosure of which is protected by Article 27-F of the [facility] Public Health law. If you continue you may have access to information: Regarding HIV / AIDS; Provided by facilities licensed or operated by the [facility] Office of Mental Health; or Provided by the [facility] Office for People With Developmental Disabilities. If such information is present, then the following [facility] mandated warning applies: This information has been disclosed to you from confidential records which are protected by state law. State law prohibits you from making any further disclosure of this information without the specific written consent of the person to whom it pertains, or as otherwise permitted by law. Any unauthorized further disclosure in violation of state law may result in a fine or senior care sentence or both. A general authorization for the release of medical or other information is NOT sufficient authorization for further disc losure. Family History Family Member Name Family Member Gender Family Member Status Date o f Status Description Data Source(s) Unknown Female Problem [facility] ([facility]) Unknown Female Problem [facility] ([facility]) Encounters Encounter Providers Location Date Indications Data Source(s ) Outpatient Attender: UNKNOWN CPSCAORT-LABEJN 05/12/2021 09:47:00 AM E [facility] Outpatient Attender: Mehrdad Sommers ED-LABPNP 09:18:00 AM EDT - 05/12/2021 09:19:00 AM EDT [id number] [facility] [id number] Patient discharged. Outpatient Attender: Obdulia Tran MD ER-LAB 01/13/2021 11:07:00 AM [facility] Outpatient Attender: Obdulia Tran MDAttender: OBDULIA FORD MD ER-LAB 12/19/2020 12:00:00 PM [facility] Outpatient Attender: Obdulia Tran MDAttender: OBDULIA FORD MD ER-LAB 11/11/2020 11:30:00 AM [facility] Outpatient Attender: Obdulia Tran MDAttender: OBDULIA FORD MD ER-CANOPS 10/17/2020 07:54:00 AM [facility] Outpatient Attender: Obdulia Tran MDAttender: OBDULIA FORD MD ER-CANOPS 09/17/2020 11:13:00 AM [facility] Outpatient Attender: SIRI GAMEZ CPSCAORT-LABCOVEJN 1 10/22/2019 12:36:00 PM EST - 08/21/2020 12:37:00 PM EST COVID TEST [facility] COVID TEST Patient discharged. Outpatient Attender: Obdulia Tran MDAttender: OBDULIA FORD MD ER-LAB 07/31/2020 12:42:00 PM [facility] Outpatient Attender: Obdulia Tran MDAttender: OBDULIA FORD MD ER-LAB 07/05/2020 02:08:00 PM [facility] Outpatient Attender: Manohar Null NP ER-CANOPS 05/22/2020 07:49:00 AM [facility] Outpatient Attender: Obdulia Tran MDAttender: OBDULIA FORD MD ER-CANOPS 05/22/2020 07:47:00 AM [facility] Preadmit Attender: Obdulia Tran MDAttender: OBDULIA FORD MD 05/20/2020 11:09:00 AM [facility] Outpatient Attender: Obdulia Tran MDAttender: OBDULIA FORD MD 05/14/2020 10:47:00 AM [facility] Outpatient Attender: Obdulia Tran MDAttender: OBDULIA FORD MD ER-CTCMEDONC 05/13/2020 11:00:00 AM [facility] Outpatient Attender: Obdulia Tran MDAttender: OBDULIA FORD MD ER-CANOPS 05/09/2020 08:21:00 AM [facility] Outpatient Attender: Nuria GAMEZ CPSCAORT-CPSCAORT 0 05/07/2020 07:29:00 AM EDT - 05/07/2020 07:30:00 AM EDT [facility] Patient discharged. Outpatient Attender: Obdulia Tran MDAttender: OBDULIA FORD MD ER-CANOPS 05/03/2020 07:49:00 AM [facility] Outpatient Attender: Obdulia Tran MDAttender: OBDULIA FORD MD ER-MOB 04/25/2020 01:40:00 PM [facility] Outpatient Attender: Obdulialucia Tran MDAttender: OBDULIA FORD MD ER-RAD 03/18/2020 02:51:00 AM [facility] Outpatient Attender: Obdulia Tran MDAttender: OBDULIA FORD MD ER-CTCMEDONC 12/21/2019 08:14:00 AM [facility] Outpatient Attender: Obdulia Tran MDAttender: OBDULIA FORD MD ER-CANOPS 11/07/2019 07:47:00 AM [facility] Outpatient Attender: Obdulia Tran MDAttender: OBDULIA FORD MD ER-CANOPS 10/25/2019 07:48:00 AM [facility] Outpatient Attender: Obdulia Tran MDAttender: OBDULIA FORD MD ER-CANOPS 10/10/2019 07:47:00 AM [facility] Outpatient Attender: Obdulia Tran MDAttender: OBDULIA FORD MD ER-CANOPS 10/05/2019 07:47:00 AM [facility] Outpatient Attender: Obdulia Tran MDAttender: OBDULIA FORD MD ER-CTCMEDONC 09/18/2019 09:32:00 AM [facility] Outpatient Attender: Obdulia Tran MDAttender: OBDULIA FORD MD ER-CANOPS 06/28/2019 03:10:00 PM [facility] Immunizations Vaccine Date Status Description Data Source(s) COVID-19 VACCINE Moderna 10/17/2020 12:00:00 AM EST completed [facility] Vaccine Series Complete: YESThis Data wa s Submitted to [facility] Via [employer]. COVID-19 VACCINE Moderna 09/19/2020 12:00:00 AM EST completed [facility] Vaccine Series Complete: NOThis Data was Submitted to [facility] [employer]. Medications Medication Brand Name Start Date Product Form Dose Route Admi nistrative Instructions Pharmacy Instructions Status Indications Reaction Description Data Source(s) 250 mg 05/14/2021 12:00:00 AM EDT tablet 6 TAKE TWO TABLETS BY MOUTH AT ONCE ON THE FIRST DAY THEN TAKE ONE DAILY THEREAFTER TAKE TWO TABLETS BY MOUTH AT ONCE ON THE FIRST DAY THEN TAKE ONE DAILY THEREAFTER SOLD: 05/14/2021 [facility] 2 % 05/14/2021 12:00:00 AM EDT solution 100 SWISH AND SWALLOW 15ML IN THROAT, NO MORE THAN TWICE A DAY SWISH AND SWALLOW 15ML IN THROAT, NO MOR E THAN TWICE A DAY SOLD: 05/14/2021 [facility] benzonatate 100 MG Oral Capsule BENZONATATE 05/14/2021 12:00:00 AM EDT capsule 21 TAKE ONE CAPSULE BY MOUTH 2 TO 3 TIMES P ER DAY NEEDED FOR COUGH TAKE ONE CAPSULE BY MOUTH 2 TO 3 TIMES PER DAY NEEDED FOR COUGH SOLD: 05/14/2021 [facility] 20 mg 10/09/2020 12:00:00 AM EST tablet 30 TAKE ONE TABLET BY MOUTH EVERY DAY TAKE ONE TABLET BY MOUTH EVERY DAY SOLD: 10/11/2020 [facility] 5 mg 10/09/2020 12:00:00 AM EST tablet 30 TAKE ONE TABLET BY MOUTH EVERY DAY NEEDED TAKE ONE TABLET BY MOUTH EVERY DAY NEEDED SOLD: 10/11/2020 [facility] 200 mg 10/09/2020 12:00:00 AM EST capsule 60 TAKE ONE CAPSULE BY MOUTH TWICE A DAY WITH FOOD TAKE ONE CAPSULE BY MOUTH TWICE A DAY WITH FOOD SOLD: 10/11/2020 [facility] 200 mg 10/09/2020 12:00:00 AM EST capsule 60 TAKE ONE CAPSULE BY MOUTH TWICE A DAY WITH FOOD TAKE ONE CAPSULE BY MOUTH TWICE A DAY WITH FOOD SOLD: 02/27/2021 [facility] 20 mg 10/09/2020 12:00:00 AM EST tablet 30 TAKE ONE TABLET BY MOUTH EVERY DAY TAKE ONE TABLET BY MOUTH EVERY DAY SOLD: 2021 [facility] 100 mg 10/09/2020 12:00:00 AM EST capsule 30 TAKE ONE CAPSULE BY MOUTH EVERY DAY TAKE ONE CAPSULE BY MOUTH EVERY DAY SOLD: 02/27/2021 [facility] Cyclobenzaprine hydrochloride 5 MG Oral Tablet CYCLOBENZAPRI NE HCL 10/09/2020 12:00:00 AM EST tablet 30 TAKE ONE TABLET BY MOUTH EVERY DAY NEEDED TAKE ONE TABLET BY MOUTH EVERY DAY NEEDED SOLD: 07/07/2021 [facility] 100 mg 10/09/2020 12:00:00 AM EST capsule 30 TAKE ONE CAPSULE BY MOUTH EVERY DAY TAKE ONE CAPSULE BY MOUTH EVERY DAY SOLD: 10/11/2020 [facility] Cyclobenzaprine hydrochloride 5 MG Oral Tablet CYCLOBENZAPRI NE HCL 10/09/2020 12:00:00 AM EST tablet 30 TAKE ONE TABLET BY MOUTH EVERY DAY NEEDED TAKE ONE TABLET BY MOUTH EVERY DAY NEEDED SOLD: 2021 [facility] 20 mg 09/05/2020 12:00:00 AM EST tablet 30 TAKE 1 TABLET BY MOUTH ONCE DAILY TAKE 1 TABLET BY MOUTH ONCE DAILY SOLD: 09/08/2020 [facility] 500 mg 09/01/2020 12:00:00 AM EST capsule 14 TAKE ONE CAPSULE BY MOUTH TWICE A DAY TAKE ONE CAPSULE BY MOUTH TWICE A DAY SOLD: 09/01/2020 [facility] 20 mg 06/21/2020 12:00:00 AM EDT tablet 30 TAKE ONE TABLET BY MOUTH EVERY DAY TAKE ONE TABLET BY MOUTH EVERY DAY SOLD: 07/26/2020 [facility] 20 mg 06/21/2020 12:00:00 AM EDT tablet 30 TAKE ONE TABLET BY MOUTH EVERY DAY TAKE ONE TABLET BY MOUTH EVERY DAY SOLD: 06/21/2020 [facility] Cyclobenzaprine hydrochloride 5 MG Oral Tablet CYCLOBENZAPRI NE HCL 10/06/2019 12:00:00 AM EST tablet 90 TAKE ONE TABLET BY MOUTH THREE TIMES A DAY TAKE ONE TABLET BY MOUTH THREE TIMES A DAY SOLD: 07/26/2020 [facility] 100 mg 10/06/2019 12:00:00 AM EST capsule 90 TAKE ONE CAPSULE BY MOUTH THREE TIMES A DAY TAKE ONE CAPSULE BY MOUTH THREE TIMES A DAY SOLD: 07/26/2020 [facility] 200 mg 10/06/2019 12:00:00 AM EST capsule 60 TAKE ONE CAPSULE BY MOUTH TWICE A DAY WITH FOOD TAKE ONE CAPSULE BY MOUTH TWICE A DAY WITH FOOD SOLD: 07/26/2020 [facility] Insurance Providers Payer name Policy type / Coverage type Policy ID Covered green party ID Covered green party's relationship to oneill Policy Oneill Plan Information RAYO Faust [facility] Part B [id number] Self AW [id number] RAYO [place] Medigap Part B [id number] Self [facility] Medigap Part B [id number] Self [id number] [facility] Commercial [id number] Self [facility] Commercial [id number] Self [id number] [facility] Resolve F [id number] SELF [id number] [facility] Resolve F [id number] SELF [id number] [facility] EMP U [id number] Self [id number] Blue Cross Blue Shield P [id number] SELF [id number] EXCELLUS C [id number] Self [id number] EXCELLUS H [id number] Self [id number] BLUE CROSS [id number] S [id number] BLUE CROSS [id number] S [id number] BS [place] Commercial [id number] Self [id number] [facility] HEATHCARE [id number] SP [id number] [facility]RES[facility]VE [id number] SP [id number] RESOLVE HEALTHPLAN O [id number] S [id number] SELF PAY UNAVAILABLE SP UNAVAILA BLE [place] PPO [id number] SP [id number] EXCELLUS [employer] [place] 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[employer]LLUS [employer] [place] [id number] S [id number] [facility] Detention [id number] S [id number] EXCELLUS [employer] [place] [id number] S [id number] BLUE CROSS [id number] S [id number] EXCELLUS BCBS B [id number] S [id number] EXCELLUS BCBS B UNAVAILABLE [id number] S UNAV AILABLE ANSI-Commercial [id number] ANSI-Commercial [id number] ANSI-Commercial [id number] BS [place] Commercial [id number] Self [id number] [employer] [id number] S [id number] Problems, Conditions, and Diagnoses Code Display Name Description Problem Type Effective Dates Data Source(s) E83.119 Hemochromatosis, unspecified HEMOCHROMATOSIS, UNSPECIF IED Diagnosis 01/13/2021 11:07:00 AM EDT [facility] Z11.59 Encounter for screening for other viral diseases ENCOUNTER FOR SCREENING FOR OTHER VIRAL DISEASES Diagnosis 08/21/2020 12:36:[address] [facility] Surgeries/Procedures Procedure Description Date Indications Data Source(s) 32456 08/21/2020 12:00:00 AM [facility] Results ID Date Data Source [id number] 05/12/2021 07:59:00 AM EDT [facility] Name Value Range Interpretation Code Description Data Gregoria rce(s) Supporting Document(s) Respiratory specimen severe acute respir atory syndrome coronavirus 2 (SARS-CoV-2) RNA Negative (qualifier value) [facility] This lab was ordered by [facility] hu and reported by [facility]. ID Date Data Source [id number] 05/13/2021 07:05:00 AM EDT [facility] COVID-19 Specimen Source NASOPHARYNGEAL Name Value Range Interpretation Code Description Data Gregoria rce(s) Supporting Document(s) SARS-CoV-2 RNA PANTHER Negative Normal (applies to non-n umeric results) [facility] Testing was performed using the Aptima S ARS-CoV-2 Assay ([facility]loan System) Methodology: Nucleic Acid Amplification Drill Sharpener Operator RT-PCR Mediated Amplification (TMA) and Dual Kinetic Assay (DKA) Negative results do not preclude SARS-CoV-2 infection and should not be used as the sole basis for patient management decisions. Negative results must be combined with clinical observations, patient history, and epidemiological information. This test has been authorized by FDA under an (Emergency Use Authorization) EUA for use by authorized laboratories for individuals who are suspected of COVID-19 by their healthcare provider. This test is only authorized for the duration of the declaration that circumstances exist justifying the authorization of emergency use of in vitro diagnostic tests for detection and/or diagnosis of SARS-CoV-2. Fact sheets for this EUA assay can be found at the following links EUA Fact Sheet for Providers: https://www.fda.gov/media/038284/download EUA Fact Sheet for Patients: https://www.fda.gov/media/599295/download THIS IS A STATE REPORTABLE COMMUNICABLE DISEASE. Test Performed By: [facility] [address] [place] [address] Director: Esperanza Rosado MD ID Date Data Source [id number] 05/13/2021 02:06:00 AM EDT [facility] COVID-19 Specimen Source NASOPHARYNGEAL Testing was performed using the Aptima SARS-CoV-2 Assay (Sloan System) Methodology: Nucleic Acid Amplification Drill Sharpener Operator RT-PCR Mediated Amplification (TMA) and Dual Kinetic Assay (DKA) Negative results do not preclude SARS-CoV-2 infection and should not be used as the sole basis for patient management decisions. Negative results must be combined with clinical observations, patient history, and epidemiological information. This test has been authorized by FDA under an (Emergency Use Authorization) EUA for use by authorized laboratories for individuals who are suspected of COVID-19 by their healthcare provider. This test is only authorized for the duration of the declaration that circumstances exist justifying the authorization of emergency use of in vitro diagnostic tests for detection and/or diagnosis of SARS-CoV-2. Fact sheets for this EUA assay can be found at the following links EUA Fact Sheet for Providers: https://www.fda.gov/media/103284/download EUA Fact Sheet for Patients: https://www.fda.gov/media/008623/download THIS IS A STATE REPORTABLE COMMUNICABLE DISEASE. Test Performed By: [facility] [address] [place] [address] Director: Esperanza Rosado MD Name Value Range Interpretation Code Description Data Gregoria rce(s) Supporting Document(s) ID Date Data Source [id number] 01/13/2021 01:23:00 PM EDT [facility] parker Name Value Range Interpretation Code Description Data Gregoria rce(s) Supporting Document(s) FE 101 ug/dL 42-175 [facility] Patients treated with metal-binding drug s(i.e. Deferoxamine) may have depressed iron values aschelated iron may not properly react in the iron assay. UNBOUND IRON BC 199 ug/dL 130-375 [facility] TOTAL IRON BC 300.0 ug/dL 250-400 [facility] % IRON SAT. 33.6 % 30-35 [facility] ID Date Data Source [id number] 01/13/2021 01:23:00 PM EDT [facility] parker Name Value Range Interpretation Code Description Data [facility] rce(s) Supporting Document(s) ALKALINE PHOS 119 U/L 45-117 H [facility] TP 7.6 g/dL 6.0-7.8 [facility] ALB 3.8 g/dL 3.5-5.0 [facility] ESRD Dialysis patient Albumin reference range: 2.9-4.4 g/dL T. BILIRUBIN 0.5 mg/dL 0.1-1.1 [facility] [place] Total Bilirubin is n ot recommended forpatients undergoing treatment with eltrombopag (Promacta)due to the potential for falsely elevated results. DIRECT BILI. 0.1 mg/dL 0.0-0.2 [facility] ALTI 66 U/L 6-54 [facility] Patients taking Sulfasalazine and/or Sul fapyridine may havefalsely depressed ALT levels. Patients should be drawn forALT before the initial administration of either drug. AST 22 U/L 8-40 [facility] Patients taking Sulfasalazine and/or Sul fapyridine may havefalsely depressed AST levels. Patients should be drawn forAST before the initial administration of either drug. ID Date Data Source [id number] 01/13/2021 01:00:00 [facility] Name Value Range Interpretation Code Description Data Gregoria rce(s) Supporting Document(s) JARON 444.9 ng/mL 26.0-388.0 [facility] ID Date Data Source [id number] 01/13/2021 12:37:00 PM [facility]T [facility] Name Value Range Interpretation Code Description Data Gregoria rce(s) Supporting Document(s) WBC 9.59 x10E3/uL 4.0-10.5 [facility] RBC 4.99 x10E6/uL 4.70-6.00 [facility] Hemoglobin 15.0 g/dL 14.0-18.0 [facility] Hematocrit 45.1 % 42.0-52.0 [facility] MCV 90.4 fL 81.0-99.0 [facility] [facility] MCH 30.1 pg 27.0-31.0 [facility] MCHC 33.3 g/dL 32.7-35.6 [facility] RDW 12.4 % 11.5-14.0 [facility] Platelet count 251 x10E3/uL 150-450 [facility] ital MPV 10.9 fl 6.9-9.5 [facility] Neutrophils 63.0 % 34-64 [facility] Lymphocytes 25.8 % 25-45 [facility] Monocytes 8.7 % 1.7-10.6 [facility] Eosinophils 1.5 % 0.4-7.0 [facility] Basophils 0.6 % 0.1-2.0 [facility] Imm. Gran. 0.4 % 0.1-2.0 [facility] Abs. Neutro. 6.05 x10E3/uL 1.2-7.6 [facility] Lymph. 2.47 x10E3/uL 1.0-3.5 N [facility] Abs. Dixon. 0.83 x10E3/uL 0.1-1.0 N [facility] l Abs. Eosin. 0.14 x10E3/uL 0.1-0.7 N [facility] al Abs. Baso. 0.06 x10E3/uL 0.0-0.1 N [facility] Abs. Imm. Gran. 0.04 x10E3/uL 0.0-0.1 [facility] spital ANRBC% 0 % 0 [facility] ID Date Data Source [id number] 12/19/2020 02:51:00 PM EDT [facility] Name Value Range Interpretation Code Description Data Gregoria rce(s) Supporting Document(s) FE 72 ug/dL 42-175 [facility] Patients treated with metal-binding drug s(i.e. Deferoxamine) may have depressed iron values aschelated iron may not properly react in the iron assay. UNBOUND IRON BC 209 ug/dL 130-375 [facility] TOTAL IRON BC 281.0 ug/dL 250-400 [facility] % IRON SAT. 25.6 % 30-35 [facility] ID Date Data Source [id number] 12/19/2020 02:51:00 PM EDT [facility] Name Value Range Interpretation Code Description Data Gregoria rce(s) Supporting Document(s) ALKALINE PHOS 121 U/L 45-117 [facility] TP 7.3 g/dL 6.0-7.8 [facility] ALB 3.7 g/dL 3.5-5.0 [facility] ESRD Dialysis patient Albumin reference range: 2.9-4.4 g/dL T. BILIRUBIN 0.4 mg/dL 0.1-1.1 [facility] [employer] [place] Total Bilirubin is n ot recommended forpatients undergoing treatment with eltrombopag (Promacta)due to the potential for falsely elevated results. DIRECT BILI. 0.1 mg/dL 0.0-0.2 [facility] ALTI 62 U/L 6-54 [facility] Patients taking Sulfasalazine and/or Sul fapyridine may havefalsely depressed ALT levels. Patients should be drawn forALT before the initial administration of either drug. AST 31 U/L 8-40 [facility] Patients taking Sulfasalazine and/or Sul fapyridine may havefalsely depressed AST levels. Patients should be drawn forAST before the initial administration of either drug. ID Date Data Source [id number] 12/19/2020 02:14:00 PM [facility] Name Value Range Interpretation Code Description Data Gregoria rce(s) Supporting Document(s) JARON 392.4 ng/mL 26.0-388.0 [facility] ID Date Data Source [id number] 12/19/2020 01:53:00 PM EDT [facility] Name Value Range Interpretation Code Description Data Gregoria rce(s) Supporting Document(s) WBC 10.86 x10E3/uL 4.0-10.5 [facility] RBC 4.66 x10E6/uL 4.70-6.00 L [facility] Hemoglobin 14.3 g/dL 14.0-18.0 [facility] Hematocrit 42.0 % 42.0-52.0 [facility] MCV 90.1 fL 81.0-99.0 [facility] MCH 30.7 pg 27.0-31.0 [facility] MCHC 34.0 g/dL 32.7-35.6 [facility] RDW 12.7 % 11.5-14.0 [facility] Platelet count 237 x10E3/uL 150-450 [facility] ital MPV 11.1 fl 6.9-9.5 H [facility] Neutrophils 69.3 % 34-64 [facility] Lymphocytes 22.0 % 25-45 [facility] Monocytes 6.8 % 1.7-10.6 [facility] Eosinophils 1.0 % 0.4-7.0 [facility] Basophils 0.5 % 0.1-2.0 [facility] Imm. Gran. 0.4 % 0.1-2.0 [facility] Abs. Neutro. 7.53 x10E3/uL 1.2-7.6 [facility] Abs. Lymph. 2.39 x10E3/uL 1.0-3.5 [facility] Dixon. 0.74 x10E3/uL 0.1-1.0 N [facility] l Abs. Eosin. 0.11 x10E3/uL 0.1-0.7 [facility] Baso. 0.05 x10E3/uL 0.0-0.1 N [facility] l Abs. Imm. Gran. 0.04 x10E3/uL 0.0-0.1 [facility] spital ANRBC% 0 % 0 [facility] ID Date Data Source [id number] 11/11/2020 01:49:00 PM EDT [facility] parker Name Value Range Interpretation Code Description Data Gregoria rce(s) Supporting Document(s) FE 90 ug/dL 42-175 [facility] Patients treated with metal-binding drug s(i.e. Deferoxamine) may have depressed iron values aschelated iron may not properly react in the iron assay. UNBOUND IRON BC 212 ug/dL 130-375 N [facility] al TOTAL IRON BC 302.0 ug/dL 250-400 [facility] al % IRON SAT. 29.8 % 30-35 [facility] ID Date Data Source [id number] 11/11/2020 01:49:00 PM EDT [facility] parker Name Value Range Interpretation Code Description Data Gregoria rce(s) Supporting Document(s) JARON 304.4 ng/mL 26.0-388.0 [facility] ID Date Data Source [id number] 11/11/2020 01:49:00 PM EDT [facility] parker Name Value Range Interpretation Code Description Data Gregoria rce(s) Supporting Document(s) ALKALINE PHOS 114 U/L 45-117 [facility] TP 7.5 g/dL 6.0-7.8 [facility] ALB 3.7 g/dL 3.5-5.0 [facility] ESRD Dialysis patient Albumin reference range: 2.9-4.4 g/dL T. BILIRUBIN 0.2 mg/dL 0.1-1.1 [facility] [employer] [place] Total Bilirubin is n ot recommended forpatients undergoing treatment with eltrombopag (Promacta)due to the potential for falsely elevated results. DIRECT BILI. 0.1 mg/dL 0.0-0.2 [facility] ALTI 51 U/L 6-54 [facility] Patients taking Sulfasalazine and/or Sul fapyridine may havefalsely depressed ALT levels. Patients should be drawn forALT before the initial administration of either drug. AST 22 U/L 8-40 [facility] Patients taking Sulfasalazine and/or Sul fapyridine may havefalsely depressed AST levels. Patients should be drawn forAST before the initial administration of either drug. ID Date Data Source [id number] 11/11/2020 12:49:00 PM EDT [facility] Name Value Range Interpretation Code Description Data Gregoria rce(s) Supporting Document(s) WBC 9.97 x10E3/uL 4.0-10.5 [facility] RBC 4.62 x10E6/uL 4.70-6.00 [facility] Hemoglobin 13.9 g/dL 14.0-18.0 [facility] Hematocrit 41.4 % 42.0-52.0 [facility] MCV 89.6 fL 81.0-99.0 [facility] MCH 30.1 pg 27.0-31.0 [facility] MCHC 33.6 g/dL 32.7-35.6 [facility] RDW 12.9 % 11.5-14.0 [facility] Platelet count 248 x10E3/uL 150-450 [facility] ital MPV 11.0 fl 6.9-9.5 H [facility] Neutrophils 66.2 % 34-64 [facility] Lymphocytes 22.6 % 25-45 [facility] Monocytes 8.9 % 1.7-10.6 [facility] Eosinophils 1.2 % 0.4-7.0 [facility] Basophils 0.7 % 0.1-2.0 [facility] Imm. Gran. 0.4 % 0.1-2.0 [facility] Abs. Neutro. 6.60 x10E3/uL 1.2-7.6 [facility] Abs. Lymph. 2.25 x10E3/uL 1.0-3.5 N [facility] al Abs. Dixon. 0.89 x10E3/uL 0.1-1.0 N [facility] l Abs. Eosin. 0.12 x10E3/uL 0.1-0.7 N [facility] Abs. Baso. 0.07 x10E3/uL 0.0-0.1 N [facility] l Abs. Imm. Gran. 0.04 x10E3/uL 0.0-0.1 [facility] spital ANRBC% 0 % 0 [facility] ID Date Data Source [id number] 10/17/2020 03:00:00 PM EST [facility] Name Value Range Interpretation Code Description Data Gregoria rce(s) Supporting Document(s) FE 116 ug/dL 42-175 [facility] Patients treated with metal-binding drug s(i.e. Deferoxamine) may have depressed iron values aschelated iron may not properly react in the iron assay. UNBOUND IRON BC 198 ug/dL 130-375 [facility] TOTAL IRON BC 314.0 ug/dL 250-400 [facility] % IRON SAT. 36.9 % 30-35 [facility] ID Date Data Source [id number] 10/17/2020 03:00:00 PM [facility] Name Value Range Interpretation Code Description Data Gregoria rce(s) Supporting Document(s) ALKALINE PHOS 121 U/L 45-117 [facility] TP 7.6 g/dL 6.0-7.8 [facility] ALB 4.0 g/dL 3.5-5.0 [facility] ESRD Dialysis patient Albumin reference range: 2.9-4.4 g/dL T. BILIRUBIN 0.7 mg/dL 0.1-1.1 [facility] [employer] [place] Total Bilirubin is n ot recommended forpatients undergoing treatment with eltrombopag (Promacta)due to the potential for falsely elevated results. DIRECT BILI. 0.2 mg/dL 0.0-0.2 [facility] ALTI 54 U/L 6-54 [facility] Patients taking Sulfasalazine and/or Sul fapyridine may havefalsely depressed ALT levels. Patients should be drawn forALT before the initial administration of either drug. AST 27 U/L 8-40 [facility] Patients taking Sulfasalazine and/or Sul fapyridine may havefalsely depressed AST levels. Patients should be drawn forAST before the initial administration of either drug. ID Date Data Source [id number] 10/17/2020 03:00:00 PM EST [facility] Name Value Range Interpretation Code Description [facility](s) JARON 359.5 ng/mL 26.0-388.0 [facility] ID Date Data Source [id number] 10/17/2020 01:51:00 PM EST [facility] Name Value Range Interpretation Code Description Data [facility] Supporting Document(s) WBC 10.52 x10E3/uL 4.0-10.5 [facility] RBC 4.78 x10E6/uL 4.70-6.00 [facility] Hemoglobin 14.0 g/dL 14.0-18.0 [facility] Hematocrit 42.1 % 42.0-52.0 [facility] MCV 88.1 fL 81.0-99.0 [facility] MCH 29.3 pg 27.0-31.0 [facility] MCHC 33.3 g/dL 32.7-35.6 [facility] RDW 12.9 % 11.5-14.0 [facility] Platelet count 204 x10E3/uL 150-450 [facility] ital MPV 11.5 fl 6.9-9.5 H [facility] Neutrophils 70.8 % 34-64 [facility] Lymphocytes 20.7 % 25-45 [facility] Monocytes 6.8 % 1.7-10.6 [facility] Eosinophils 0.8 % 0.4-7.0 [facility] Basophils 0.5 % 0.1-2.0 [facility] Imm. Gran. 0.4 % 0.1-2.0 [facility] Abs. Neutro. 7.45 x10E3/uL 1.2-7.6 [facility] Abs. Lymph. 2.18 x10E3/uL 1.0-3.5 N [facility] al Abs. Dixon. 0.72 x10E3/uL 0.1-1.0 N [facility] l Abs. Eosin. 0.08 x10E3/uL 0.1-0.7 L [facility] al Abs. Baso. 0.05 x10E3/uL 0.0-0.1 N [facility] l Abs. Imm. Gran. 0.04 x10E3/uL 0.0-0.1 [facility] spital ANRBC% 0 % 0 [facility] ID Date Data Source [id number] 09/17/2020 02:48:00 PM EST [facility] Name Value Range Interpretation Code Description Data Gregoria rce(s) Supporting Document(s) FE 102 ug/dL 42-175 [facility] Patients treated with metal-binding drug s(i.e. Deferoxamine) may have depressed iron values aschelated iron may not properly react in the iron assay. UNBOUND IRON BC 219 ug/dL 130-375 [facility] TOTAL IRON BC 321.0 ug/dL 250-400 [facility] % IRON SAT. 31.7 % 30-35 [facility] ID Date Data Source [id number] 09/17/2020 02:48:00 PM EST [facility] Name Value Range Interpretation Code Description Data Gregoria rce(s) Supporting Document(s) ALKALINE PHOS 111 U/L 45-117 [facility] TP 7.6 g/dL 6.0-7.8 [facility] ALB 3.9 g/dL 3.5-5.0 [facility] ESRD Dialysis patient Albumin reference range: 2.9-4.4 g/dL T. BILIRUBIN 0.5 mg/dL 0.1-1.1 [facility] [employer] [place] Total Bilirubin is n ot recommended forpatients undergoing treatment with eltrombopag (Promacta)due to the potential for falsely elevated results. DIRECT BILI. < 0.1 mg/dL 0.0-0.2 [facility] l ALTI 48 U/L 6-54 [facility] Patients taking Sulfasalazine and/or Sul fapyridine may havefalsely depressed ALT levels. Patients should be drawn forALT before the initial administration of either drug. AST 22 U/L 8-40 [facility] Patients taking Sulfasalazine and/or Sul fapyridine may havefalsely depressed AST levels. Patients should be drawn forAST before the initial administration of either drug. ID Date Data Source [id number] 09/17/2020 02:47:00 PM EST [facility] Name Value Range Interpretation Code Description Data Gregoria rce(s) Supporting Document(s) JARON 303.2 ng/mL 26.0-388.0 [facility] ID Date Data Source [id number] 09/17/2020 02:16:00 PM EST [facility] Name Value Range Interpretation Code Description Data Gregoria rce(s) Supporting Document(s) WBC 8.56 x10E3/uL 4.0-10.5 [facility] RBC 4.75 x10E6/uL 4.70-6.00 [facility] Hemoglobin 14.0 g/dL 14.0-18.0 [facility] Hematocrit 41.9 % 42.0-52.0 [facility] MCV 88.2 fL 81.0-99.0 [facility] MCH 29.5 pg 27.0-31.0 [facility] MCHC 33.4 g/dL 32.7-35.6 [facility] RDW 12.7 % 11.5-14.0 [facility] Platelet count 238 x10E3/uL 150-450 [facility] ital MPV 11.4 fl 6.9-9.5 H [facility] Neutrophils 62.7 % 34-64 [facility] Lymphocytes 25.7 % 25-45 [facility] Monocytes 8.4 % 1.7-10.6 [facility] Eosinophils 1.3 % 0.4-7.0 [facility] Basophils 0.7 % 0.1-2.0 [facility] Imm. Gran. 1.2 % 0.1-2.0 [facility] Abs. Neutro. 5.37 x10E3/uL 1.2-7.6 [facility] Abs. Lymph. 2.20 x10E3/uL 1.0-3.5 [facility] Abs. Dixon. 0.72 x10E3/uL 0.1-1.0 N [facility] Abs. Eosin. 0.11 x10E3/uL 0.1-0.7 [facility] Abs. Baso. 0.06 x10E3/uL 0.0-0.1 [facility] Abs. Imm. Gran. 0.10 x10E3/uL 0.0-0.1 [facility] ANRBC% 0 % 0 [facility] ID Date Data Source [id number] 08/23/2020 01:57:00 PM EST [facility] Name Value Range Interpretation Code Description Data Gregoria rce(s) Supporting Document(s) Respiratory specimen severe acute respir atory syndrome coronavirus 2 (SARS-CoV-2) RNA [facility] This lab was ordered by [facility] fritz and reported by [facility]. ID Date Data Source [id number] 08/23/2020 01:57:00 PM [facility] THIS IS A REPLACED BY [facility] REPORTABLE COMMUNICABLE DISEASE. Testing was performed using the [employer] COVID-19 MDx Assay. This test has been authorized by FDA under an (Emergency Use Authorization) EUA for use by authorized laboratories for individuals who are suspected of COVID-19 by their healthcare provider. This test is only authorized for the duration of the declaration that circumstances exist justifying the authorization of emergency use of in vitro diagnostic tests for detection and/or diagnosis of SARS-CoV-2. Methodology: Endpoint RT-PCR. Fact sheets for this EUA assay can be found at the following links: Providers: https://www.fda.gov/media/413892/download Patients : https://www.fda.gov/media/399301/download THIS IS A [facility] REPORTABLE COMMUNICABLE DISEASE Negative results do not preclude SARS-CoV-2 infection and should not be used as the sole basis for patient management decisions. Negative results must be combined with clinical observations,patient history, and epidemiological information. Name Value Range Interpretation Code Description Data Gregoria rce(s) Supporting Document(s) ID Date Data Source [id number] 07/31/2020 03:02:00 PM EST [facility] Name Value Range Interpretation Code Description Data Gregoria rce(s) Supporting Document(s) ALKALINE PHOS 116 U/L 45-117 [facility] TP 7.7 g/dL 6.0-7.8 [facility] ALB 3.9 g/dL 3.5-5.0 [facility] ESRD Dialysis patient Albumin reference range: 2.9-4.4 g/dL T. BILIRUBIN 0.6 mg/dL 0.1-1.1 [facility] [employer] [place] Total Bilirubin is n ot recommended forpatients undergoing treatment with eltrombopag (Promacta)due to the potential for falsely elevated results. DIRECT BILI. 0.2 mg/dL 0.0-0.2 [facility] ALTI 98 U/L 6-54 [facility] Patients taking Sulfasalazine and/or Sul fapyridine may havefalsely depressed ALT levels. Patients should be drawn forALT before the initial administration of either drug. AST 43 U/L 8-40 [facility] Patients taking Sulfasalazine and/or Sul fapyridine may havefalsely depressed AST levels. Patients should be drawn forAST before the initial administration of either drug. ID Date Data Source [id number] 07/31/2020 02:35:00 PM EST [facility] Name Value Range Interpretation Code Description Data Gregoria rce(s) Supporting Document(s) WBC 9.40 x10E3/uL 4.0-10.5 [facility] RBC 4.90 x10E6/uL 4.70-6.00 [facility] Hemoglobin 14.8 g/dL 14.0-18.0 [facility] Hematocrit 43.8 % 42.0-52.0 [facility] MCV 89.4 fL 81.0-99.0 [facility] MCH 30.2 pg 27.0-31.0 [facility] MCHC 33.8 g/dL 32.7-35.6 [facility] RDW 12.5 % 11.5-14.0 [facility] Platelet count 246 x10E3/uL 150-[facility] 11.4 fl 6.9-9.5 [facility] Neutrophils 73.1 % 34-64 [facility] Lymphocytes 18.6 % 25-45 [facility] Monocytes 6.9 % 1.7-10.6 [facility] Eosinophils 0.6 % 0.4-7.0 [facility] Basophils 0.6 % 0.1-2.0 [facility] Imm. Gran. 0.2 % 0.1-2.0 N [facility] Abs. Neutro. 6.86 x10E3/uL 1.2-7.6 [facility] Lymph. 1.75 x10E3/uL 1.0-3.5 [facility] Abs. Dixon. 0.65 x10E3/uL 0.1-1.0 N [facility] l Abs. Eosin. 0.06 x10E3/uL 0.1-0.7 [facility] Abs. Baso. 0.06 x10E3/uL 0.0-0.1 [facility] Abs. Imm. Gran. 0.02 x10E3/uL 0.0-0.1 N [facility] spital ANRBC% 0 % 0 [facility] ID Date Data Source [id number] 07/05/2020 03:28:00 PM EST [facility] Name Value Range Interpretation Code Description Data Gregoria rce(s) Supporting Document(s) FE 112 ug/dL 42-175 [facility] Patients treated with metal-binding drug s(i.e. Deferoxamine) may have depressed iron values aschelated iron may not properly react in the iron assay. UNBOUND IRON BC 188 ug/dL 130-375 [facility] TOTAL IRON BC 300.0 ug/dL 250-400 [facility] IRON SAT. 37.3 % 30-35 [facility] ID Date Data Source [id number] 07/05/2020 03:28:00 PM EST [facility] Name Value Range Interpretation Code Description Data Gregoria rce(s) Supporting Document(s) JARON 317.0 ng/mL 26.0-388.0 [facility] Procedure Social History No Information
--- NOTE | 2021-07-31 15:52 | REP ---
INDICATION: low back pain following lifting yesterday. COMPARISON: None. TECHNIQUE: Five views FINDINGS: Vertebral body height and alignment is within normal limits. The disc spaces are symmetric and relatively well maintained with the exception of mild posterior disc space narrowing at L4-5 and L5-S1. There is no spondylolysis or spondylolisthesis. The pedicles are intact bilaterally. IMPRESSION: Minimal chronic changes <Electronically signed by Mark Fitzpatrick > 07/31/21 1335
--- OUTSIDE RECORDS SUMMARY | 2021-07-31 19:26 | CCD ---
Author Author [facility] Organization [facility] Address Unknown Phone Unavailable Care Team Providers Care Medical Interpreter Name Role Phone OBDULIA TRAN MD Unavailable [...] Unavailable Unavailable Gardner, E Nuria PA Unavailable [phone] Gardner, E Nuria PA Unavailable [phone] Gardner, E Nuria PA Unavailable [phone] Gardner, E Nuria PA Unavailable [phone] Gardner, E Nuria PA Unavailable [phone] Gardner, E Nuria PA Unavailable [phone] NARESH Tran MD Unavailable Unavailable NARESH Tran [...] Tran MD Unavailable Unavailable Cougler, S Manohar UNIT AID Unavailable Unavailable Cougler, S Manohar UNIT AID Unavailable Unavailable Cougler, S Manohar UNIT AID Unavailable Unavailable Cougler, S Manohar UNIT AID Unavailable Unavailable Cougler, S Manohar UNIT AID Unavailable Unavailable Cougler, S Manohar UNIT AID Unavailable Unavailable Cougler, S Manohar UNIT AID Unavailable Unavailable Cougler, S Manohar UNIT AID Unavailable Unavailable Cougler, S Manohar UNIT AID Unavailable Unavailable Cougler, S Manohar UNIT AID Unavailable Unavailable Cougler, S Manohar UNIT AID Unavailable Unavailable Cougler, S Manohar UNIT AID Unavailable Unavailable Cougler, S Manohar UNIT AID Unavailable Unavailable Cougler, S Manohar UNIT AID Unavailable Unavailable Cougler, S Manohar UNIT AID Unavailable Unavailable Cougler, S Manohar UNIT AID Unavailable Unavailable Cougler, S Manohar UNIT AID Unavailable Unavailable Cougler, S Manohar UNIT AID Unavailable Unavailable Cougler, S Manohar UNIT AID Unavailable Unavailable Cougler, S Manohar UNIT AID Unavailable Unavailable Cougler, S Manohar UNIT AID Unavailable Unavailable Cougler, S Manohar UNIT AID Unavailable Unavailable Cougler, S Manohar UNIT AID Unavailable Unavailable Cougler, S Manohar UNIT AID Unavailable Unavailable Cougler, S Manohar UNIT AID Unavailable Unavailable Cougler, S Manohar UNIT AID Unavailable Unavailable Cougler, S Manohar UNIT AID Unavailable Unavailable Cougler, S Manohar UNIT AID Unavailable Unavailable Cougler, S Manohar UNIT AID Unavailable Unavailable Cougler, S Manohar UNIT AID Unavailable Unavailable Cougler, S Manohar UNIT AID Unavailable Unavailable Cougler, S Manohar UNIT AID Unavailable Unavailable Cougler, S Manohar UNIT AID Unavailable Unavailable Cougler, S Manohar UNIT AID Unavailable Unavailable Cougler, S Manohar UNIT AID Unavailable Unavailable Cougler, S Manohar UNIT AID Unavailable Unavailable Cougler, S Manohar UNIT AID Unavailable Unavailable Cougler, S Manohar UNIT AID Unavailable Unavailable Cougler, S Manohar UNIT AID Unavailable Unavailable Cougler, S Manohar UNIT AID Unavailable Unavailable Cougler, S Manohar UNIT AID Unavailable Unavailable Cougler, S Manohar UNIT AID Unavailable Unavailable Cougler, S Manohar UNIT AID Unavailable Unavailable Cougler, S Manohar UNIT AID Unavailable Unavailable Cougler, S Manohar UNIT AID Unavailable Unavailable UNKNOWN Unavailable Unavailable BROUGHAL, C [...] is protected by Article 27-F of the [facility] Public Health law. If you continue you may have access to information: Regarding HIV / AIDS; Provided by facilities licensed or operated by the [facility] Office of Mental Health; or Provided by the [facility] Office for People With Developmental Disabilities. If such information is present, then the following [facility] mandated warning applies: This information has been [...] law may result in a fine or long-term sentence or both. A general authorization for the release of medical or other information is NOT sufficient authorization for further disc losure. Family History Family Member Name Family Member Gender Family Member Status Date o f Status Description Data Source(s) Unknown Female Problem [facility] ([facility]) Unknown Female Problem [facility] ([facility]) Encounters Encounter Providers Location Date Indications Data Source(s ) Outpatient Attender: UNKNOWN CPSCAORT-LABEJN 05/12/2021 09:47:00 AM E [facility] Outpatient Attender: Mehrdad Sommers ED-LABPNP 09:18:00 AM EDT - 05/12/2021 09:19:00 AM EDT [id number] [facility] [id number] Patient discharged. Outpatient Attender: Obdulia Tran MD ER-LAB 01/13/2021 11:07:00 AM [facility] Outpatient Attender: Obdulia Tran MDAttender: OBDULIA FORD MD ER-LAB 12/19/2020 12:00:00 PM [facility] Outpatient Attender: Obdulia Tran MDAttender: OBDULIA FORD MD ER-LAB 11/11/2020 11:30:00 AM [facility] Outpatient Attender: Obdulia Tran MDAttender: OBDULIA FORD MD ER-CANOPS 10/17/2020 07:54:00 AM [facility] Outpatient Attender: Obdulia Tran MDAttender: OBDULIA FORD MD ER-CANOPS 09/17/2020 11:13:00 AM [facility] Outpatient Attender: SIRI GAMEZ CPSCAORT-LABCOVEJN 1 10/22/2019 12:36:00 PM EST - 08/21/2020 12:37:00 PM EST COVID TEST [facility] COVID TEST Patient discharged. Outpatient Attender: Obdulia Tran MDAttender: OBDULIA FORD MD ER-LAB 07/31/2020 12:42:00 PM [facility] Outpatient Attender: Obdulia Tran MDAttender: OBDULIA FORD MD ER-LAB 07/05/2020 02:08:00 PM [facility] Outpatient Attender: Manohar Null NP ER-CANOPS 05/22/2020 07:49:00 AM [facility] Outpatient Attender: Obdulia Tran MDAttender: OBDULIA FORD MD ER-CANOPS 05/22/2020 07:47:00 AM [facility] Preadmit Attender: Obdulia Tran MDAttender: OBDULIA FORD MD 05/20/2020 11:09:00 AM [facility] Outpatient Attender: Obdulia Tran MDAttender: OBDULIA FORD MD 05/14/2020 10:47:00 AM [facility] Outpatient Attender: Obdulia Tran MDAttender: OBDULIA FORD MD ER-CTCMEDONC 05/13/2020 11:00:00 AM [facility] Outpatient Attender: Obdulia Tran MDAttender: OBDULIA FORD MD ER-CANOPS 05/09/2020 08:21:00 AM [facility] Outpatient Attender: Nuria GAMEZ CPSCAORT-CPSCAORT 0 05/07/2020 07:29:00 AM EDT - 05/07/2020 07:30:00 AM EDT [facility] Patient discharged. Outpatient Attender: Obdulia Tran MDAttender: OBDULIA FORD MD ER-CANOPS 05/03/2020 07:49:00 AM [facility] Outpatient Attender: Obdulia Tran MDAttender: OBDULIA FORD MD ER-MOB 04/25/2020 01:40:00 PM [facility] Outpatient Attender: Obdulialucia Tran MDAttender: OBDULIA FORD MD ER-RAD 03/18/2020 02:51:00 AM [facility] Outpatient Attender: Obdulia Tran MDAttender: OBDULIA FORD MD ER-CTCMEDONC 12/21/2019 08:14:00 AM [facility] Outpatient Attender: Obdulia Tran MDAttender: OBDULIA FORD MD ER-CANOPS 11/07/2019 07:47:00 AM [facility] Outpatient Attender: Obdulia Tran MDAttender: OBDULIA FORD MD ER-CANOPS 10/25/2019 07:48:00 AM [facility] Outpatient Attender: Obdulia Tran MDAttender: OBDULIA FORD MD ER-CANOPS 10/10/2019 07:47:00 AM [facility] Outpatient Attender: Obdulia Tran MDAttender: OBDULIA FORD MD ER-CANOPS 10/05/2019 07:47:00 AM [facility] Outpatient Attender: Obdulia Tran MDAttender: OBDULIA FORD MD ER-CTCMEDONC 09/18/2019 09:32:00 AM [facility] Outpatient Attender: Obdulia Tran MDAttender: OBDULIA FORD MD ER-CANOPS 06/28/2019 03:10:00 PM [facility] Immunizations Vaccine Date Status Description Data Source(s) COVID-19 VACCINE Moderna 10/17/2020 12:00:00 AM EST completed [facility] Vaccine Series Complete: YESThis Data wa s Submitted to [facility] Via [facility]. COVID-19 VACCINE Moderna 09/19/2020 12:00:00 AM EST completed [facility] Vaccine Series Complete: NOThis Data was Submitted to [facility] Via [employer]. Medications Medication Brand Name Start Date Product [...] MOUTH THREE TIMES A DAY SOLD: 07/26/2020 [facility] 200 mg 10/06/2019 12:00:00 AM EST capsule 60 TAKE ONE CAPSULE BY MOUTH TWICE A DAY WITH FOOD TAKE ONE CAPSULE BY MOUTH TWICE A DAY WITH FOOD SOLD: 07/26/2020 [facility] Insurance Providers Payer name Policy type / Coverage type Policy ID Covered constitution party ID Covered constitution party's relationship to oneill Policy Oneill Plan Information RAYO Faust [facility] Part B [id number] Self AW [id number] RAYO [place] Med[employer] Part B [id number] Self [facility]/Resolve Medigap Part B [id number] Self 03 [id number] [facility] Commercial [id number] Self [facility] Commercial [id number] Self [id number] [facility] Resolve F [id number] SELF [id number] [facility] Resolve F [id number] SELF [id number] [facility] EMP U [id number] Self [id number] Blue Cross Blue Shield P [id number] SELF [id number] EXCELLUS C [id number] Self [id number] EXCELLUS H [id number] Self [id number] BLUE CROSS [id number] S [id number] BLUE CROSS [id number] S [id number] BS [place] [employer] [id number] Self [id number] [facility] HEATHCARE [id number] SP [id number] [facility]/RESOLVE [id number] SP [id number] RESOLVE HEALTHPLAN O [id number] S [id number] SELF PAY UNAVAILABLE SP UNAVAILA BLE BC[place] PPO [id number] SP [id number] EXCELLUS BCBS [place] 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 [id number] EXCELLUS [employer] [place] [id number] S [id number] [facility] Retirement [id number] S [id number] EXCELLUS [employer] [place] [id number] S [id number] BLUE CROSS [id number] S [id number] EXCELLUS BCBS B [id number] S [id number] EXCELLUS BCBS B UNAVAILABLE [id number] S UNAV AILABLE ANSI-Commercial [id number] ANSI-Commercial [id number] ANSI-Commercial [id number] BS [place] [employer] [id number] Self [id number] [employer] [id number] S [id number] Problems, Conditions, and Diagnoses Code Display Name Description Problem Type Effective Dates Data Source(s) E83.119 Hemochromatosis, unspecified HEMOCHROMATOSIS, UNSPECIF IED Diagnosis 01/13/2021 11:07:00 AM EDT [facility] Z11.59 Encounter for screening for other viral diseases ENCOUNTER FOR SCREENING FOR OTHER VIRAL DISEASES Diagnosis 08/21/2020 12:36:00 PM [facility] Surgeries/Procedures Procedure Description Date Indications Data Source(s) [id number] 08/21/2020 12:00:00 AM [facility] Results ID Date Data Source [id number] 05/12/2021 07:59:00 AM EDT [facility] Name Value Range Interpretation Code Description Data Gregoria rce(s) Supporting Document(s) Respiratory specimen severe acute respir atory syndrome coronavirus 2 (SARS-CoV-2) RNA Negative (qualifier value) [facility] This lab was ordered by [facility] hu and reported by [facility]. ID Date Data Source [id number] 05/13/2021 07:05:00 AM EDT [facility] COVID-19 Specimen Source NASOPHARYNGEAL Name Value Range Interpretation Code Description Data Gregoria rce(s) Supporting Document(s) SARS-CoV-2 RNA PANTHER Negative Normal (applies to non-n umeric results) [facility] Testing was performed using the Aptima S ARS-CoV-2 Assay (Chesaning System) Methodology: Nucleic Acid Amplification Photoradio Operator RT-PCR Mediated Amplification (TMA) and Dual [...] following links EUA Fact Sheet for Providers: https://www.fda.gov/media/527625/download EUA Fact Sheet for Patients: https://www.fda.gov/media/885313/download THIS IS A STATE REPORTABLE COMMUNICABLE DISEASE. Test Performed By: [facility] [address] [place] [address] Director: Esperanza Rosado MD ID Date Data Source [id number] 05/13/2021 02:06:00 AM EDT [facility] COVID-19 Specimen Source NASOPHARYNGEAL Testing was performed using the Aptima SARS-CoV-2 Assay (Chesaning System) Methodology: Nucleic Acid Amplification Photoradio Operator RT-PCR Mediated Amplification (TMA) and Dual [...] following links EUA Fact Sheet for Providers: https://www.fda.gov/media/628037/download EUA Fact Sheet for Patients: https://www.fda.gov/media/173910/download THIS IS A STATE REPORTABLE COMMUNICABLE DISEASE. Test Performed By: [facility] [address] [place] [address] Director: Esperanza Rosado MD Name Value Range Interpretation Code Description Data Gregoria rce(s) Supporting Document(s) ID Date Data Source [id number] 01/13/2021 01:23:00 PM EDT [facility] parker Name Value Range Interpretation Code Description Data Gregoria rce(s) Supporting Document(s) FE 101 ug/dL 42-175 [facility] Patients treated with metal-binding drug s(i.e. Deferoxamine) may have depressed iron values aschelated iron may not properly react in the iron assay. UNBOUND IRON BC 199 ug/dL 130-375 N [facility] al TOTAL IRON BC 300.0 ug/dL 250-400 [facility] % IRON SAT. 33.6 % 30-35 [facility] ID Date Data Source [id number] 01/13/2021 01:23:00 PM EDT [facility] parker Name Value Range Interpretation Code Description Data [facility] rce(s) Supporting Document(s) ALKALINE PHOS 119 U/L 45-117 H [facility] TP 7.6 g/dL 6.0-7.8 [facility] ALB 3.8 g/dL 3.5-5.0 [facility] ESRD Dialysis patient Albumin reference range: 2.9-4.4 g/dL T. BILIRUBIN 0.5 mg/dL 0.1-1.1 [facility] [place] Total Bilirubin is n ot recommended forpatients undergoing treatment with eltrombopag (Promacta)due to the potential for falsely elevated results. DIRECT BILI. 0.1 mg/dL 0.0-0.2 [facility] ALTI 66 U/L 6-54 H [facility] Patients taking Sulfasalazine and/or Sul fapyridine may havefalsely depressed ALT levels. Patients should be drawn forALT before the initial administration of either drug. AST 22 U/L 8-40 [facility] Patients taking Sulfasalazine and/or Sul fapyridine may havefalsely depressed AST levels. Patients should be drawn forAST before the initial administration of either drug. ID Date Data Source [id number] 01/13/2021 01:00:00 PM [facility] Name Value Range Interpretation Code Description Data Gregoria rce(s) Supporting Document(s) JARON 444.9 ng/mL 26.0-388.0 H [facility] ID Date Data Source [id number] 01/13/2021 12:37:00 PM EDT [facility] Name Value Range Interpretation Code Description Data Gregoria rce(s) Supporting Document(s) WBC 9.59 x10E3/uL 4.0-10.5 [facility] RBC 4.99 x10E6/uL 4.70-6.00 [facility] Hemoglobin 15.0 g/dL 14.0-18.0 [facility] Hematocrit 45.1 % 42.0-52.0 [facility] MCV 90.4 fL 81.0-99.0 [facility] MCH 30.1 pg 27.0-31.0 [facility] MCHC 33.3 g/dL 32.7-35.6 [facility] RDW 12.4 % 11.5-14.0 [facility] Platelet count 251 x10E3/uL 150-450 [facility] ital MPV 10.9 fl 6.9-9.5 H [facility] Neutrophils 63.0 % 34-64 [facility] Lymphocytes 25.8 % 25-45 [facility] Monocytes 8.7 % 1.7-10.6 [facility] Eosinophils 1.5 % 0.4-7.0 [facility] Basophils 0.6 % 0.1-2.0 [facility] Imm. Gran. 0.4 % 0.1-2.0 [facility] Abs. Neutro. 6.05 x10E3/uL 1.2-7.6 [facility] Abs. Lymph. 2.47 x10E3/uL 1.0-3.5 N [facility] Abs. [place]. 0.83 x10E3/uL 0.1-1.0 N [facility] l Abs. Eosin. 0.14 x10E3/uL 0.1-0.7 N [facility] al Abs. Baso. 0.06 x10E3/uL 0.0-0.1 N [facility] Abs. Imm. Gran. 0.04 x10E3/uL 0.0-0.1 [facility] spital ANRBC% 0 % 0 [facility] ID Date Data Source [id number] 12/19/2020 02:51:00 PM EDT [facility] Name Value Range Interpretation Code Description Data Gregoria rce(s) Supporting Document(s) FE 72 ug/dL 42-175 [facility] Patients treated with metal-binding drug s(i.e. Deferoxamine) may have depressed iron values aschelated iron may not properly react in the iron assay. UNBOUND IRON BC 209 ug/dL 130-375 [facility] TOTAL IRON BC 281.0 ug/dL 250-400 [facility] % IRON SAT. 25.6 % 30-35 [facility] ID Date Data Source [id number] 12/19/2020 02:51:00 PM EDT [facility] Name Value Range Interpretation Code Description Data Gregoria rce(s) Supporting Document(s) ALKALINE PHOS 121 U/L 45-117 H [facility] TP 7.3 g/dL 6.0-7.8 [facility] ALB 3.7 g/dL 3.5-5.0 [facility] ESRD Dialysis patient Albumin reference range: 2.9-4.4 g/dL T. BILIRUBIN 0.4 mg/dL 0.1-1.1 [facility] [place] Total Bilirubin is n ot recommended forpatients undergoing treatment with eltrombopag (Promacta)due to the potential for falsely elevated results. DIRECT BILI. 0.1 mg/dL 0.0-0.2 [facility] ALTI 62 U/L 6-54 H [facility] Patients taking Sulfasalazine and/or Sul fapyridine may havefalsely depressed ALT levels. Patients should be drawn forALT before the initial administration of either drug. AST 31 U/L 8-40 [facility] Patients taking Sulfasalazine and/or Sul fapyridine may havefalsely depressed AST levels. Patients should be drawn forAST before the initial administration of either drug. ID Date Data Source [id number] 12/19/2020 02:14:00 PM EDT [facility] Name Value Range Interpretation Code Description Data Gregoria rce(s) Supporting Document(s) JARON 392.4 ng/mL 26.0-388.0 H [facility] ID Date Data Source [id number] 12/19/2020 01:53:00 PM EDT [facility] Name Value Range Interpretation Code Description Data Gregoria rce(s) Supporting Document(s) WBC 10.86 x10E3/uL 4.0-10.5 [facility] RBC 4.66 x10E6/uL 4.70-6.00 L [facility] Hemoglobin 14.3 g/dL 14.0-18.0 [facility] Hematocrit 42.0 % 42.0-52.0 [facility] MCV 90.1 fL 81.0-99.0 [facility] MCH 30.7 pg 27.0-31.0 [facility] MCHC 34.0 g/dL 32.7-35.6 [facility] RDW 12.7 % 11.5-14.0 [facility] Platelet count 237 x10E3/uL 150-450 [facility] ital MPV 11.1 fl 6.9-9.5 H [facility] Neutrophils 69.3 % 34-64 H [facility] Lymphocytes 22.0 % 25-45 L [facility] Monocytes 6.8 % 1.7-10.6 [facility] Eosinophils 1.0 % 0.4-7.0 [facility] Basophils 0.5 % 0.1-2.0 [facility] Imm. Gran. 0.4 % 0.1-2.0 [facility] Abs. Neutro. 7.53 x10E3/uL 1.2-7.6 [facility] Abs. Lymph. 2.39 x10E3/uL 1.0-3.5 [facility] [place] 0.74 x10E3/uL 0.1-1.0 N [facility] l Abs. Eosin. 0.11 x10E3/uL 0.1-0.7 [facility] Baso. 0.05 x10E3/uL 0.0-0.1 N [facility] l Abs. Imm. Gran. 0.04 x10E3/uL 0.0-0.1 [facility] spital ANRBC% 0 % 0 [facility] ID Date Data Source [id number] 11/11/2020 01:49:00 PM EDT [facility] parker Name Value Range Interpretation Code Description Data Gregoria rce(s) Supporting Document(s) FE 90 ug/dL 42-175 [facility] Patients treated with metal-binding drug s(i.e. Deferoxamine) may have depressed iron values aschelated iron may not properly react in the iron assay. UNBOUND IRON BC 212 ug/dL 130-375 N [facility] al TOTAL IRON BC 302.0 ug/dL 250-400 [facility] % IRON SAT. 29.8 % 30-35 [facility] ID Date Data Source [id number] 11/11/2020 01:49:00 PM EDT [facility] parker Name Value Range Interpretation Code Description Data Gregoria rce(s) Supporting Document(s) JARON 304.4 ng/mL 26.0-388.0 [facility] ID Date Data Source [id number] 11/11/2020 01:49:00 PM EDT [facility] parker Name Value Range Interpretation Code Description Data Gregoria rce(s) Supporting Document(s) ALKALINE PHOS 114 U/L 45-117 [facility] TP 7.5 g/dL 6.0-7.8 [facility] ALB 3.7 g/dL 3.5-5.0 [facility] ESRD Dialysis patient Albumin reference range: 2.9-4.4 g/dL T. BILIRUBIN 0.2 mg/dL 0.1-1.1 [facility] [place] Total Bilirubin is n ot recommended forpatients undergoing treatment with eltrombopag (Promacta)due to the potential for falsely elevated results. DIRECT BILI. 0.1 mg/dL 0.0-0.2 [facility] ALTI 51 U/L 6-54 [facility] Patients taking Sulfasalazine and/or Sul fapyridine may havefalsely depressed ALT levels. Patients should be drawn forALT before the initial administration of either drug. AST 22 U/L 8-40 [facility] Patients taking Sulfasalazine and/or Sul fapyridine may havefalsely depressed AST levels. Patients should be drawn forAST before the initial administration of either drug. ID Date Data Source [id number] 11/11/2020 12:49:00 PM EDT [facility] Name Value Range Interpretation Code Description Data Gregoria rce(s) Supporting Document(s) WBC 9.97 x10E3/uL 4.0-10.5 [facility] RBC 4.62 x10E6/uL 4.70-6.00 [facility] Hemoglobin 13.9 g/dL 14.0-18.0 [facility] Hematocrit 41.4 % 42.0-52.0 [facility] MCV 89.6 fL 81.0-99.0 [facility] MCH 30.1 pg 27.0-31.0 [facility] MCHC 33.6 g/dL 32.7-35.6 [facility] RDW 12.9 % 11.5-14.0 [facility] Platelet count 248 x10E3/uL 150-450 [facility] ital MPV 11.0 fl 6.9-9.5 H [facility] Neutrophils 66.2 % 34-64 H [facility] Lymphocytes 22.6 % 25-45 L [facility] Monocytes 8.9 % 1.7-10.6 [facility] Eosinophils 1.2 % 0.4-7.0 [facility] Basophils 0.7 % 0.1-2.0 [facility] Imm. Gran. 0.4 % 0.1-2.0 [facility] Abs. Neutro. 6.60 x10E3/uL 1.2-7.6 [facility] Abs. Lymph. 2.25 x10E3/uL 1.0-3.5 N [facility] al Abs. [place]. 0.89 x10E3/uL 0.1-1.0 N [facility] l Abs. Eosin. 0.12 x10E3/uL 0.1-0.[address] [facility] Abs. Baso. 0.07 x10E3/uL 0.0-0.1 N [facility] l Abs. Imm. Gran. 0.04 x10E3/uL 0.0-0.1 [facility] spital ANRBC% 0 % 0 [facility] ID Date Data Source [id number] 10/17/2020 03:00:00 PM EST [facility] Name Value Range Interpretation Code Description Data Gregoria rce(s) Supporting Document(s) FE 116 ug/dL 42-175 [facility] Patients treated with metal-binding drug s(i.e. Deferoxamine) may have depressed iron values aschelated iron may not properly react in the iron assay. UNBOUND IRON BC 198 ug/dL 130-375 [facility] TOTAL IRON BC 314.0 ug/dL 250-400 [facility] % IRON SAT. 36.9 % 30-35 H [facility] ID Date Data Source [id number] 10/17/2020 03:00:00 PM [facility] Name Value Range Interpretation Code Description Data Gregoria rce(s) Supporting Document(s) [place] PHOS 121 U/L 45-117 [facility] TP 7.6 g/dL 6.0-7.8 [facility] ALB 4.0 g/dL 3.5-5.0 [facility] ESRD Dialysis patient Albumin reference range: 2.9-4.4 g/dL T. BILIRUBIN 0.7 mg/dL 0.1-1.1 [facility] [place] Total Bilirubin is n ot recommended forpatients undergoing treatment with eltrombopag (Promacta)due to the potential for falsely elevated results. DIRECT BILI. 0.2 mg/dL 0.0-0.2 [facility] ALTI 54 U/L 6-54 [facility] Patients taking Sulfasalazine and/or Sul fapyridine may havefalsely depressed ALT levels. Patients should be drawn forALT before the initial administration of either drug. AST 27 U/L 8-40 [facility] Patients taking Sulfasalazine and/or Sul fapyridine may havefalsely depressed AST levels. Patients should be drawn forAST before the initial administration of either drug. ID Date Data Source [id number] 10/17/2020 03:00:[address] [place] [facility] Name Value Range Interpretation Code Description [facility] Supporting Document(s) JARON 359.5 ng/mL 26.0-388.0 [facility] ID Date Data Source [id number] 10/17/2020 01:51:00 PM [address] [place] [facility] Name Value Range Interpretation Code Description Data [facility] Supporting Document(s) WBC 10.52 x10E3/uL 4.0-10.5 [facility] 4.78 x10E6/uL 4.70-6.00 [facility] Hemoglobin 14.0 g/dL 14.0-18.0 [facility] Hematocrit 42.1 % 42.0-52.0 [facility] MCV 88.1 fL 81.0-99.0 [facility] MCH 29.3 pg 27.0-31.0 [facility] MCHC 33.3 g/dL 32.7-35.6 [facility] RDW 12.9 % 11.5-14.0 [facility] Platelet count 204 x10E3/uL 150-450 [facility] ital MPV 11.5 fl 6.9-9.5 H [facility] Neutrophils 70.8 % 34-64 H [facility] Lymphocytes 20.7 % 25-45 L [facility] Monocytes 6.8 % 1.7-10.6 [facility] Eosinophils 0.8 % 0.4-7.0 [facility] Basophils 0.5 % 0.1-2.0 [facility] Imm. Gran. 0.4 % 0.1-2.0 [facility] Abs. Neutro. 7.45 x10E3/uL 1.2-7.6 [facility] Abs. Lymph. 2.18 x10E3/uL 1.0-3.5 N [facility] al Abs. [place]. 0.72 x10E3/uL 0.1-1.0 N [facility] l Abs. Eosin. 0.08 x10E3/uL 0.1-0.7 L [facility] al Abs. Baso. 0.05 x10E3/uL 0.0-0.1 N [facility] l Abs. Imm. Gran. 0.04 x10E3/uL 0.0-0.1 [facility] spital ANRBC% 0 % 0 [facility] ID Date Data Source [id number] 09/17/2020 02:48:00 PM EST [facility] Name Value Range Interpretation Code Description Data Gregoria rce(s) Supporting Document(s) FE 102 ug/dL 42-175 [facility] Patients treated with metal-binding drug s(i.e. Deferoxamine) may have depressed iron values aschelated iron may not properly react in the iron assay. UNBOUND IRON BC 219 ug/dL 130-375 [facility] TOTAL IRON BC 321.0 ug/dL 250-400 [facility] % IRON SAT. 31.7 % 30-35 [facility] ID Date Data Source [id number] 09/17/2020 02:48:00 PM EST [facility] Name Value Range Interpretation Code Description Data Gregoria rce(s) Supporting Document(s) [place] PHOS 111 U/L 45-117 [facility] TP 7.6 g/dL 6.0-7.8 [facility] ALB 3.9 g/dL 3.5-5.0 [facility] ESRD Dialysis patient Albumin reference range: 2.9-4.4 g/dL T. BILIRUBIN 0.5 mg/dL 0.1-1.1 [facility] [place] Total Bilirubin is n ot recommended forpatients undergoing treatment with eltrombopag (Promacta)due to the potential for falsely elevated results. DIRECT BILI. < 0.1 mg/dL 0.0-0.2 [facility] l ALTI 48 U/L 6-54 [facility] Patients taking Sulfasalazine and/or Sul fapyridine may havefalsely depressed ALT levels. Patients should be drawn forALT before the initial administration of either drug. AST 22 U/L 8-40 [facility] Patients taking Sulfasalazine and/or Sul fapyridine may havefalsely depressed AST levels. Patients should be drawn forAST before the initial administration of either drug. ID Date Data Source [id number] 09/17/2020 02:47:00 PM EST [facility] Name Value Range Interpretation Code Description Data Gregoria rce(s) Supporting Document(s) JARON 303.2 ng/mL 26.0-388.0 [facility] ID Date Data Source [id number] 09/17/2020 02:16:00 PM EST [facility] Name Value Range Interpretation Code Description Data Gregoria rce(s) Supporting Document(s) WBC 8.56 x10E3/uL 4.0-10.5 [facility] RBC 4.75 x10E6/uL 4.70-6.00 [facility] Hemoglobin 14.0 g/dL 14.0-18.0 [facility] Hematocrit 41.9 % 42.0-52.0 L [facility] MCV 88.2 fL 81.0-99.0 [facility] MCH 29.5 pg 27.0-31.0 [facility] MCHC 33.4 g/dL 32.7-35.6 [facility] RDW 12.7 % 11.5-14.0 [facility] Platelet count 238 x10E3/uL 150-450 [facility] ital MPV 11.4 fl 6.9-9.5 H [facility] Neutrophils 62.7 % 34-64 [facility] Lymphocytes 25.7 % 25-45 [facility] Monocytes 8.4 % 1.7-10.6 [facility] Eosinophils 1.3 % 0.4-7.0 [facility] Basophils 0.7 % 0.1-2.0 [facility] Imm. Gran. 1.2 % 0.1-2.0 [facility] Abs. Neutro. 5.37 x10E3/uL 1.2-7.6 [facility] [place] [facility] Abs. Lymph. 2.20 x10E3/uL 1.0-3.5 [facility] [place] [facility] Abs. [place]. 0.72 x10E3/uL 0.1-1.0 [facility] Abs. Eosin. 0.11 x10E3/uL 0.1-0.7 [facility] [place] [facility] Abs. Baso. 0.06 x10E3/uL 0.0-0.1 [facility] Abs. Imm. Gran. 0.10 x10E3/uL 0.0-0.1 [facility] ANRBC% 0 % 0 [facility] ID Date Data Source [id number] 08/23/2020 01:57:00 PM EST [facility] Name Value Range Interpretation Code Description Data Gregoria rce(s) Supporting Document(s) Respiratory specimen severe acute respir atory syndrome coronavirus 2 (SARS-CoV-2) RNA [facility] This lab was ordered by [facility] fritz and reported by [facility]. ID Date Data Source [id number] 08/23/2020 01:57:00 PM [facility] THIS IS A [facility] REPORTABLE COMMUNICABLE DISEASE. Testing was performed using the [employer] COVID-19 MDx Assay. This test has been [...] be found at the following links: Providers: https://www.fda.gov/media/609982/download Patients : https://www.fda.gov/media/718203/download THIS IS A [facility] REPORTABLE COMMUNICABLE DISEASE Negative results do not preclude SARS-CoV-2 infection and should not be used as the sole basis for patient management decisions. Negative results must be combined with clinical observations,patient history, and epidemiological information. Name Value Range Interpretation Code Description Data Gregoria rce(s) Supporting Document(s) ID Date Data Source [id number] 07/31/2020 03:02:00 PM EST [facility] Name Value Range Interpretation Code Description Data Gregoria rce(s) Supporting Document(s) [place] PHOS 116 U/L 45-117 [facility] TP 7.7 g/dL 6.0-7.8 [facility] ALB 3.9 g/dL 3.5-5.0 [facility] ESRD Dialysis patient Albumin reference range: 2.9-4.4 g/dL T. BILIRUBIN 0.6 mg/dL 0.1-1.1 [facility] [place] Total Bilirubin is n ot recommended forpatients undergoing treatment with eltrombopag (Promacta)due to the potential for falsely elevated results. DIRECT BILI. 0.2 mg/dL 0.0-0.2 [facility] ALTI 98 U/L 6-54 [facility] Patients taking Sulfasalazine and/or Sul fapyridine may havefalsely depressed ALT levels. Patients should be drawn forALT before the initial administration of either drug. AST 43 U/L 8-40 [facility] Patients taking Sulfasalazine and/or Sul fapyridine may havefalsely depressed AST levels. Patients should be drawn forAST before the initial administration of either drug. ID Date Data Source [id number] 07/31/2020 02:35:00 PM EST [facility] Name Value Range Interpretation Code Description Data Gregoria rce(s) Supporting Document(s) WBC 9.40 x10E3/uL 4.0-10.5 [facility] RBC 4.90 x10E6/uL 4.70-6.00 [facility] Hemoglobin 14.8 g/dL 14.0-18.0 [facility] Hematocrit 43.8 % 42.0-52.0 [facility] MCV 89.4 fL 81.0-99.0 [facility] MCH 30.2 pg 27.0-31.0 [facility] MCHC 33.8 g/dL 32.7-35.6 [facility] RDW 12.5 % 11.5-14.0 [facility] Platelet count 246 x10E3/uL 150-[facility] MPV 11.4 fl 6.9-9.5 H [facility] Neutrophils 73.1 % 34-64 H [facility] Lymphocytes 18.6 % 25-45 L [facility] Monocytes 6.9 % 1.7-10.6 N [facility] Eosinophils 0.6 % 0.4-7.0 N [facility] Basophils 0.6 % 0.1-2.0 N [facility] Imm. Gran. 0.2 % 0.1-2.0 N [facility] Abs. Neutro. 6.86 x10E3/uL 1.2-7.6 [facility] Abs. Lymph. 1.75 x10E3/uL 1.0-3.5 [facility] [place] [facility] Abs. [place]. 0.65 x10E3/uL 0.1-1.0 N [facility] l Abs. Eosin. 0.06 x10E3/uL 0.1-0.7 [facility] [place] [facility] Abs. Baso. 0.06 x10E3/uL 0.0-0.1 [facility] [place] [facility] Abs. Imm. Gran. 0.02 x10E3/uL 0.0-0.1 N [facility] spital ANRBC% 0 % 0 N [facility] ID Date Data Source [id number] 07/05/2020 03:28:00 PM EST [facility] Name Value Range Interpretation Code Description Data Gregoria rce(s) Supporting Document(s) FE 112 ug/dL 42-175 [facility] Patients treated with metal-binding drug s(i.e. Deferoxamine) may have depressed iron values aschelated iron may not properly react in the iron assay. UNBOUND IRON BC 188 ug/dL 130-375 [facility] [place] [facility] TOTAL IRON BC 300.0 ug/dL 250-400 [facility] % IRON SAT. 37.3 % 30-35 [facility] ID Date Data Source [id number] 07/05/2020 03:28:00 PM EST [facility] Name Value Range Interpretation Code Description Data Gregoria rce(s) Supporting Document(s) JARON 317.0 ng/mL 26.0-388.0 [facility] Procedure Social History No Information
== END 2021-07-31 19:34 | disposition left against medical advice (07) ==
LOC: M ED 12:08
DX: Z53.21 Procedure and treatment not carried out due to patient leaving prior to being seen by health care provider (principal)

== ENCOUNTER → 2022-12-24 | Outpatient (CLI) | payer BC ==
[~2022-12-24] MED LIST: CELE1CAP88 PO; CYCL5TAB PO; GABA-283 PO
== END ==
LOC: M RAD 08:23
PROVIDERS: ATTEND Physical Medicine & Rehabilitation
DX: M51.26 Other intervertebral disc displacement, lumbar region (principal); M51.46 Schmorl's nodes, lumbar region; M89.38 Hypertrophy of bone, other site